=== PATIENT | female | born 1965 | race Caucasian/White ===

== ENCOUNTER 2016-10-02 16:38 | Inpatient (IN) ==
--- NOTE | 2016-10-02 16:45 | Emergency Department Note ---
START Narrative - START START: I examined this patient and my medical decision-making was reviewed with the ANTIQUE AUTOMOBILES REPAIRER/PA/Advanced Practice Nurse/Resident Physician. I agree with the documented findings, disposition and treatment plan as described except to the extent set forth below. ED attending note: Patient seen with emergency medicine resident Dr Natarajan. We independently evaluated the patient. We independently had [id number] contact with the patient. Please see a copy of his note for details of the history and physical, evaluation, management and disposition of this emergency Department patient. Briefly: A 51-year-old female sent by EMS from Dr. Pineda psychiatric attending. Patient arrives pink slipped miss knee requesting medical clearance prior to admission to the psychiatric unit. Patient is has schizoaffective disorder with suicidal ideations. Wakeboard cooperative. Patient was medically cleared and then she will be admitted inpatient. Disposition pending admission anticipated.
[2016-10-02 16:55] LABS: Bilirubin,Urine Negative (Negative); Blood,Urine Negative (Negative); Clarity,Urine Clear (Clear); Color,Urine Yellow (Yellow); Glucose,Urine (UA) Normal (Normal); Ketones,Urine Negative (Negative); Leukocyte Esterase,Urine Negative (Negative); Nitrite,Urine Negative (Negative); PH,Urine 6.5 pH Units (5.0-8.0); Protein,Urine Negative (Neg-Trace); Specific Gravity,Urine 1.014 (1.010-1.025); Urobilinogen,Urine Normal (Normal)
[2016-10-02 17:02] LABS: Amphetamine Screen,Urine Negative ng/mL (Cutoff=1000); Barbiturate Screen,Urine Negative ng/mL (Cutoff=200); Benzodiazepines Screen,Urine Positive ng/mL (Cutoff=200); Cannabinoid Screen,Urine Negative ng/mL (Cutoff = 50); Cocaine Screen,Urine Negative ng/mL (Cutoff= 300); Opiate Screen,Urine Negative ng/mL (Cutoff=300); Phencyclidine Screen,Urine Negative ng/mL (Cutoff=25)
[2016-10-02 17:06] LABS: Basophils % 0.6 %; Eosinophils # 0.1 K/mcL (0.0-0.6); Eosinophils % 2.1 %; Hematocrit 43.6 % (35.3-44.9); Hemoglobin 14.8 g/dL (11.5-15.4); Immature Granulocytes % 0.2 % (0-4); Lymphocytes # 2.4 K/mcL (0.6-4.6); Lymphocytes % 37.8 %; Mean Corpuscular HGB Conc 33.9 g/dL (31.6-35.5); Mean Corpuscular Volume 94.2 fL (83.0-100.0); Mean Platelet Volume 9.4 fL (9.4-12.4); Monocytes # 0.5 K/mcL (0.0-1.3); Monocytes % 8.3 %; Neutrophils # 3.2 K/mcL (1.6-8.9); Platelet Count 240 K/mcL (140-400); Red Blood Count 4.63 M/mcL (3.82-4.97); Red Cell Distribution Width 13.2 % (11.5-14.5)
[2016-10-02 17:20] LABS: BUN/Creatinine Ratio 11 (6-26); Blood Urea Nitrogen 9 mg/dL (7-20); Calcium 9.5 mg/dL (8.6-10.8); Carbon Dioxide 22 mEq/L (19-29); Chloride 108 mEq/L (98-109); Glucose 142 mg/dL (70-99); Osmolality,Calculated 291 (280-300); Potassium 3.7 mEq/L (3.5-4.5); Sodium 140 mEq/L (136-145); eGFR For African Americans > 60 (> 60); eGFR For Non-African Americans > 60 (> 60)
[2016-10-02 17:22] LABS: Acetaminophen < 1.0 mcg/mL (10-30); Ethanol < 10 mg/dL (0-10); Salicylate < 5.0 mg/dL (15-30)
--- NOTE | 2016-10-02 18:02 | Emergency Department Note ---
Disposition Clinical Impression: Psychiatric illness Disposition: Admitted As Inpatient Condition: Good Referrals: NO,PCP [Primary Care Provider] - Forms: ED Satisfaction Letter Psych HPI - General Chief Complaint: ED Medical Clearance Stated Complaint: med clearance Time Seen by Provider: 10/02/16 16:43 Source: patient, EMS Nursing Notes Reviewed: Yes Vital Signs Reviewed: Yes - History of Present Illness HPI Narrative: 51-year-old female with a history of schizoaffective disorder and PTSD as well as irritable bowel syndrome and a mitral valve prolapse presents to the emergency department by request of her psychiatrist for admission to the hospital. She states she has had thoughts in her head that are so confusing and does not know if these are suicidal ideations or not. SHe denies any suicide attempt or ingestion. She denies any chest pain, shortness of breath, abdominal pain, nausea or vomiting. She states she has not been sick recently. She was previously seen a psychiatrist who and that has been very hard on her as well. - Related Data Home Medications Medication Instructions Recorded Confirmed Atorvastatin [Lipitor] 10 mg PO HS 01/04/16 01/04/16 Diltiazem CD (24hr) [Cardizem CD] 180 mg PO DAILY 01/04/16 01/04/16 LORazepam [Ativan] 0.5 mg PO BID 01/04/16 01/04/16 Lactobacillus Combo No.11 2 each PO TID 01/04/16 01/04/16 [Probiotic] Levothyroxine [Synthroid] 50 mcg PO 0630 01/04/16 01/04/16 Magnesium 250 mg PO DAILY 01/04/16 01/04/16 Multivitamin [Multivitamins] 1 each PO QID 01/04/16 01/04/16 Pantoprazole Sodium 40 mg PO DAILY 01/04/16 01/04/16 Quetiapine Fumarate [SEROquel] 300 mg PO HS 01/04/16 01/04/16 Vortioxetine Hydrobromide 10 mg PO DAILY 01/04/16 01/04/16 [Trintellix] Wheat Dextrin [Benefiber] 1 each PO DAILY 01/04/16 01/04/16 lamoTRIgine [Lamictal] 200 mg PO HS 01/04/16 01/04/16 Previous Rx's Medication Instructions Recorded Cyclobenzaprine [Flexeril] 10 mg PO TID PRN #15 tablet 01/04/16 Naproxen [Naprosyn] 500 mg PO BID PRN #30 tablet 01/04/16 predniSONE [PredniSONE] 60 mg PO DAILY #15 tablet 01/04/16 Allergies Allergy/AdvReac Type Severity Reaction Status Date / Time [place] Allergy See Verified 10/02/16 16:45 Comments All systems ED: reviewed and negative except as stated. Constitutional: Denies: fever Cardiovascular: Denies: chest pain Respiratory: Denies: cough, dyspnea Gastrointestinal: Denies: abdominal pain, nausea, vomiting Neurological: Denies: headache Psychiatric: Reports: depression. Denies: homicidal thoughts Past Medical History - Past Medical History Medical history: Reports: GERD, hyperlipidemia, thyroid disease Psychiatric history: Reports: anxiety, depression, PTSD, schizophrenia, other WINDOWS SUPPORT ENGINEER history: Reports: no WINDOWS SUPPORT ENGINEER history - Social History Smoking Status: Never smoker Smokeless Tobacco Status: No Alcohol use: Reports: rarely Drug use: Reports: none Physical Exam General: Appears well, alert and oriented x 3 Cardiovascular: Regular rate and rhythm. S1, S2. Mild end systolic murmur, no rubs or gallops. Respiratory: Breath sounds clear bilaterally. No wheezing, rales or rhonchi. No resp distress Abdomen: Soft, nontender. No guarding, rebound or rigidity. Eyes: Conjunctiva clear HENT: Moist mucous membranes Neuro: Alert and oriented 3, no motor sensory deficits Musculoskeletal: No joint tenderness or swelling or no signs of self-harm Skin: No lesions. No diaphoresis. Normal turgor. Normal color Psych: Appropriate - General Limitations: no limitations General appearance: alert, in no apparent distress Course Course Narrative: Presents with presents to the ED by request of her psychiatrist, Dr. Turner for admission. Patient having thoughts in her head and unsure if these are suicidal or not. She was examined and evaluated and is medically clear. Patient will be admitted to the hospital for further psychiatric management. Vital Signs Temperature 98.0 F 10/02/16 16:39 Pulse Rate 80 10/02/16 16:39 Respiratory Rate 16 10/02/16 16:39 Blood Pressure 126/81 10/02/16 16:39 O2 Sat by Pulse Oximetry 97 10/02/16 16:39 Temperature 98.0 F 10/02/16 16:39 Pulse Rate 80 10/02/16 16:39 Respiratory Rate 16 10/02/16 16:39 Blood Pressure 126/81 10/02/16 16:39 O2 Sat by Pulse Oximetry 97 10/02/16 16:39 Oxygen Delivery Oxygen Delivery Room Air Psych - Lab Data Result diagrams: 10/02/16 16:57 10/02/16 16:57 Lab Results 10/02/16 10/02/16 10/02/16 Range/Units 16:15 16:15 16:15 WBC (4.3-11.1) K/mcL RBC (3.82-4.97) M/mcL Hgb (11.5-15.4) g/dL Hct (35.3-44.9) % MCV (83.0-100.0) fL MCH (28.0-33.3) pg MCHC (31.6-35.5) g/dL RDW (11.5-14.5) % Plt Count (140-400) K/mcL MPV (9.4-12.4) fL Immature Gran % (0-4) % Seg Neutrophils % % Lymphocytes % % Monocytes % % Eosinophils % % Basophils % % Neutrophils # (1.6-8.9) K/mcL Lymphocytes # (0.6-4.6) K/mcL Monocytes # (0.0-1.3) K/mcL Eosinophils # (0.0-0.6) K/mcL Basophils # (0.0-0.2) K/mcL Sodium (136-145) mEq/L Potassium (3.5-4.5) mEq/L Chloride (98-109) mEq/L Carbon Dioxide (19-29) mEq/L BUN (7-20) mg/dL Creatinine (0.57-1.11) mg/dL Est GFR ( Amer) (> 60) Est GFR (Non-Af Amer) (> 60) BUN/Creatinine Ratio (6-26) Glucose (70-99) mg/dL Calculated Osmolality (280-300) Calcium (8.6-10.8) mg/dL Urine Color Yellow (Yellow) Urine Clarity Clear (Clear) Urine pH 6.5 (5.0-8.0) pH Units Ur Specific [place] 1.014 (1.010-1.025) Urine Protein Negative (Neg-Trace) mg/dL Urine Glucose (UA) Normal (Normal) mg/dL Urine Ketones Negative (Negative) mg/dL Urine Blood Negative (Negative) Urine Nitrite Negative (Negative) Urine Bilirubin Negative (Negative) Urine Urobilinogen Normal (Normal) mg/dL Ur Leukocyte Esterase Negative (Negative) Urine Test Negative (Negative) Salicylates (15-30) mg/dL Urine Opiates Screen Negative (Rofbpb=366) ng/mL Acetaminophen (10-30) mcg/mL Ur Barbiturates Screen Negative (Buhgcw=123) ng/mL Ur Phencyclidine Scrn Negative (Cutoff=25) ng/mL Ur Amphetamines Screen Negative (Iibeap=2335) ng/mL U Benzodiazepines Scrn Positive H (Sfbphm=784) ng/mL Urine Cocaine Screen Negative (Cutoff= 300) ng/mL U Marijuana (THC) Screen Negative (Cutoff = 50) ng/mL Ethyl Alcohol (0-10) mg/dL 10/02/16 10/02/16 Range/Units 16:57 16:57 WBC 6.3 (4.3-11.1) K/mcL RBC 4.63 (3.82-4.97) M/mcL Hgb 14.8 (11.5-15.4) g/dL Hct 43.6 (35.3-44.9) % MCV 94.2 (83.0-100.0) fL MCH 32.0 (28.0-33.3) pg MCHC 33.9 (31.6-35.5) g/dL RDW 13.2 (11.5-14.5) % Plt Count 240 (140-400) K/mcL MPV 9.4 (9.4-12.4) fL Immature Gran % 0.2 (0-4) % Seg Neutrophils % 51.0 % Lymphocytes % 37.8 % Monocytes % 8.3 % Eosinophils % 2.1 % Basophils % 0.6 % Neutrophils # 3.2 (1.6-8.9) K/mcL Lymphocytes # 2.4 (0.6-4.6) K/mcL Monocytes # 0.5 (0.0-1.3) K/mcL Eosinophils # 0.1 (0.0-0.6) K/mcL Basophils # 0.0 (0.0-0.2) K/mcL Sodium 140 (136-145) mEq/L Potassium 3.7 (3.5-4.5) mEq/L Chloride 108 (98-109) mEq/L Carbon Dioxide 22 (19-29) mEq/L BUN 9 (7-20) mg/dL Creatinine 0.84 (0.57-1.11) mg/dL Est GFR ( Amer) > 60 (> 60) Est GFR (Non-Af Amer) > 60 (> 60) BUN/Creatinine Ratio 11 (6-26) Glucose 142 H (70-99) mg/dL Calculated Osmolality 291 (280-300) Calcium 9.5 (8.6-10.8) mg/dL Urine Color (Yellow) Urine Clarity (Clear) Urine pH (5.0-8.0) pH Units Ur Specific [place] (1.010-1.025) Urine Protein (Neg-Trace) mg/dL Urine Glucose (UA) (Normal) mg/dL Urine Ketones (Negative) mg/dL Urine Blood (Negative) Urine Nitrite (Negative) Urine Bilirubin (Negative) Urine Urobilinogen (Normal) mg/dL Ur Leukocyte Esterase (Negative) Urine Test (Negative) Salicylates < 5.0 L (15-30) mg/dL Urine Opiates Screen (Laorhm=022) ng/mL Acetaminophen < 1.0 L (10-30) mcg/mL Ur Barbiturates Screen (Sayagn=950) ng/mL Ur Phencyclidine Scrn (Cutoff=25) ng/mL Ur Amphetamines Screen (Xiscmv=1281) ng/mL U Benzodiazepines Scrn (Diegqm=960) ng/mL Urine Cocaine Screen (Cutoff= 300) ng/mL U Marijuana (THC) Screen (Cutoff = 50) ng/mL Ethyl Alcohol < 10 (0-10) mg/dL Psychiatric Medical Clearance - Medical Clearance Checklist Does the patient have a NEW psychiatric condition?: No Any abnormalities indicating possible medical illness?: No Any history of medical issues?: No Medical History: No Social History Section defined Any abnormal vital signs prior to transfer?: No Current Vitals: Last Vital Signs Temp 98.0 F 10/02/16 16:39 Pulse 80 10/02/16 16:39 Resp 16 10/02/16 16:39 BP 126/81 10/02/16 16:39 Pulse Ox 97 10/02/16 16:39 Is the patient intoxicated or cognitively impaired?: No Psychiatric Lab Panel: Drug Levels and Toxicity 10/02/16 10/02/16 16:15 16:57 Urine Opiates Screen Negative Acetaminophen < 1.0 L Ur Barbiturates Screen Negative Ur Phencyclidine Scrn Negative Ur Amphetamines Screen Negative U Benzodiazepines Scrn Positive H Urine Cocaine Screen Negative U Marijuana (THC) Screen Negative Ethyl Alcohol < 10 Any abnormalities on the physical exam?: No Any abnormal labs?: No Abnormal Labs: Abnormal lab results Glucose 142 mg/dL (70-99) H 10/02/16 16:57 Salicylates < 5.0 mg/dL (15-30) L 10/02/16 16:57 Acetaminophen < 1.0 mcg/mL (10-30) L 10/02/16 16:57 U Benzodiazepines Scrn Positive ng/mL (Bqwoww=539) H 10/02/16 16:15 Does the patient require durable medical equiptment?: No Is the patient ambulatory?: No Is the patient a fall risk?: No Has the patient been medically cleared?: No Any acute medical condition require Tx prior to transfer?: No Statement of Medical Clearance: I have evaluated the patient, reviewed diagnostic information, and certify that the patient's medical condition is sufficiently stable that transfer to the psychiatric unit does not pose a significant risk of deterioration.
[2016-10-02] MEDS ORDERED: *HR* LORazepam 1 MG TABLET PO ONE (19:42)
[2016-10-02] MEDS ORDERED: *HR* LORazepam 2 MG/ML VIAL IM PRN (21:18)
[2016-10-02] MEDS ORDERED: MOM Conc 10 ML UD.LIQ PO PRN (21:18)
[2016-10-02] MEDS ORDERED: hydrOXYzine pamoate 25 MG CAPSULE PO PRN (21:18)
[2016-10-02] MEDS ORDERED: *HR* LORazepam 1 MG TABLET PO PRN (21:18)
[2016-10-02] MEDS ORDERED: Haloperidol Lactate 5 MG/ML VIAL IM PRN (21:18)
[2016-10-02] MEDS ORDERED: Mag Hydrox/Al Hydrox/Simeth 30 ML UDC PO PRN (21:18)
[2016-10-02] MEDS ORDERED: Polyethylene Glycol 3350 255 GM POWDER PO PRN (21:25)
[2016-10-02] MEDS: diazePAM 2 MG TABLET PO SCH (22:28)
[2016-10-02] MEDS: Ibuprofen 400 MG TABLET PO PRN (22:28)
[2016-10-02] MEDS: lamoTRIgine 100 MG TABLET PO SCH (22:28)
[2016-10-03] MEDS: lamoTRIgine 100 MG TABLET PO SCH ×2 (09:13→20:38)
[2016-10-03] MEDS: Magnesium Oxide 400 MG TABLET PO SCH (09:13)
[2016-10-03] MEDS: Lactobacillus 1 EACH CAP.SPRINK PO SCH (09:13)
[2016-10-03] MEDS: Diltiazem CD (24hr) 180 MG CAPSULE PO SCH (09:14)
[2016-10-03] MEDS: diazePAM 2 MG TABLET PO SCH ×2 (09:14→20:38)
[2016-10-03] MEDS: Multivit/Ca/Min/Fe/FA 1 TAB TABLET PO SCH (09:14)
--- NOTE | 2016-10-03 10:45 | Psychiatry History & Physical ---
Date of Encounter: 10/03/16 Time of Encounter: 10:00 History of Present Illness Patient Stated Chief Complaint: Suicidal ideation Medicare Admission Attestation: For traditional Medicare patients the provided hospital inpatient services are reasonable and necessary and in the case of services not specified as inpatient -only under 42 CFR 419.22 (n), that they are appropriately provided as inpatient services in accordance 42 CFR 412.3. For Critical Access Hospital the patient may reasonably be expected to be discharged or transferred to a hospital within 96 hours after admission to the Critical Access Hospital. Admitted From: Emergency Dept History of Present Illness: Ms. Estrada is a 51 year old female with long history of schizoaffective disorder bipolar type, she was referred for admission by Dr. Pineda her psychiatrist to evaluate suicidal ideation and medication changes. Patient was medically cleared in the emergency room. Patient has been reported to be going several increasing mood swings and auditory hallucinations and poor sleep. Recently she was tapered off Effexor and having some withdrawal symptoms. Patient has long history of psychiatric treatment for schizoaffective disorder PTSD and personality disorder. She has been followed by Dr. Pineda at [facility]. Past Med Surg Social Fam HX - Past Medical History Medical history: GERD, hyperlipidemia, thyroid disease - Past Psychiatric History Psychiatric history: Reports: bipolar, PTSD, prior suicide attempt, previous psychiatric hospitalization - Past Surgical History Surgical History: hysterectomy - Social History Smoking Status: Never smoker Smokeless Tobacco Status: No Alcohol use: rarely Drug use: none Medications & Allergies Atorvastatin [Lipitor] 10 mg PO HS 01/04/16 [History] Diltiazem CD (24hr) [Cardizem CD] 180 mg PO DAILY 01/04/16 [History] Lactobacillus Combo No.11 [Probiotic] 2 each PO DAILY 01/04/16 [History] Levothyroxine [Synthroid] 50 mcg PO 0630 01/04/16 [History] Magnesium 250 mg PO DAILY 01/04/16 [History] Multivitamin [Multivitamins] 1 each PO DAILY 01/04/16 [History] Pantoprazole Sodium 40 mg PO DAILY 01/04/16 [History] Quetiapine Fumarate [SEROquel] 300 mg PO HS 01/04/16 [History] lamoTRIgine [Lamictal] 200 mg PO BID 01/04/16 [History] Polyethylene Glycol 3350 [MiraLAX bowel prep] 17 gm PO DAILY PRN 05/15/17 [ History] diazePAM [Valium] 2 mg PO BID 10/02/16 [History] Allergies [place] Allergy (Verified 10/02/16 19:04) See Comments Patient states that this medication caused her thyroid levels to be "off" Review of Systems Psychiatric: Reports: anxiety, suicidal ideation, auditory hallucinations, mood swings Mental Status Exam Patient orientation: Yes Person, Yes Time, Yes Place Level of alertness: Alert Patient appearance: Appropriate, Well Groomed, Unkempt, Average Behavior: calm, cooperative, guarded Psychomotor activity: Normal Eye contact: Minimal Contact Mood description: Euthymic/stable, Anxious Affect description: congruent with mood, constricted, anxious Speech pattern: Normal rate, Normal rhythm, Normal tone Speech volume: Normal Thought process: Linear, Goal Oriented Thought content: No Suicidal ideation, No Homicidal ideation, No Overt delusions Perceptual disturbances: Yes Auditory hallucinations, No Visual hallucinations Attention span: Unable to Focus Memory description: Grossly Intact Patient reliability: Reliable Historian Intelligence estimate: Average Judgment: Limited Insight: Partial Results - Vital Signs Vital signs: Temp Pulse Resp BP Pulse Ox 97.8 F 94 18 115/84 97 10/03/16 09:00 10/03/16 09:00 10/03/16 09:00 10/03/16 09:00 10/02/16 16:39 - Labs Labs: Laboratory Last Values WBC 6.3 K/mcL (4.3-11.1) 10/02/16 16:57 RBC 4.63 M/mcL (3.82-4.97) 10/02/16 16:57 Hgb 14.8 g/dL (11.5-15.4) 10/02/16 16:57 Hct 43.6 % (35.3-44.9) 10/02/16 16:57 MCV 94.2 fL (83.0-100.0) 10/02/16 16:57 MCH 32.0 pg (28.0-33.3) 10/02/16 16:57 MCHC 33.9 g/dL (31.6-35.5) 10/02/16 16:57 RDW 13.2 % (11.5-14.5) 10/02/16 16:57 Plt Count 240 K/mcL (140-400) 10/02/16 16:57 MPV 9.4 fL (9.4-12.4) 10/02/16 16:57 Immature Gran % 0.2 % (0-4) 10/02/16 16:57 Seg Neutrophils % 51.0 % 10/02/16 16:57 Lymphocytes % 37.8 % 10/02/16 16:57 Monocytes % 8.3 % 10/02/16 16:57 Eosinophils % 2.1 % 10/02/16 16:57 Basophils % 0.6 % 10/02/16 16:57 Neutrophils # 3.2 K/mcL (1.6-8.9) 10/02/16 16:57 Lymphocytes # 2.4 K/mcL (0.6-4.6) 10/02/16 16:57 Monocytes # 0.5 K/mcL (0.0-1.3) 10/02/16 16:57 Eosinophils # 0.1 K/mcL (0.0-0.6) 10/02/16 16:57 Basophils # 0.0 K/mcL (0.0-0.2) 10/02/16 16:57 Sodium 140 mEq/L (136-145) 10/02/16 16:57 Potassium 3.7 mEq/L (3.5-4.5) 10/02/16 16:57 Chloride 108 mEq/L (98-109) 10/02/16 16:57 Carbon Dioxide 22 mEq/L (19-29) 10/02/16 16:57 BUN 9 mg/dL (7-20) 10/02/16 16:57 Creatinine 0.84 mg/dL (0.57-1.11) 10/02/16 16:57 Est GFR ( Amer) > 60 (> 60) 10/02/16 16:57 Est GFR (Non-Af Amer) > 60 (> 60) 10/02/16 16:57 BUN/Creatinine Ratio 11 (6-26) 10/02/16 16:57 Glucose 142 mg/dL (70-99) H 10/02/16 16:57 Calculated Osmolality 291 (280-300) 10/02/16 16:57 Calcium 9.5 mg/dL (8.6-10.8) 10/02/16 16:57 Urine Color Yellow (Yellow) 10/02/16 16:15 Urine Clarity Clear (Clear) 10/02/16 16:15 Urine pH 6.5 pH Units (5.0-8.0) 10/02/16 16:15 Ur Specific [place] 1.014 (1.010-1.025) 10/02/16 16:15 Urine Protein Negative mg/dL (Neg-Trace) 10/02/16 16:15 Urine Glucose (UA) Normal mg/dL (Normal) 10/02/16 16:15 Urine Ketones Negative mg/dL (Negative) 10/02/16 16:15 Urine Blood Negative (Negative) 10/02/16 16:15 Urine Nitrite Negative (Negative) 10/02/16 16:15 Urine Bilirubin Negative (Negative) 10/02/16 16:15 Urine Urobilinogen Normal mg/dL (Normal) 10/02/16 16:15 Ur Leukocyte Esterase Negative (Negative) 10/02/16 16:15 Urine Test Negative (Negative) 10/02/16 16:15 Salicylates < 5.0 mg/dL (15-30) L 10/02/16 16:57 Urine Opiates Screen Negative ng/mL (Gykhwl=225) 10/02/16 16:15 Acetaminophen < 1.0 mcg/mL (10-30) L 10/02/16 16:57 Ur Barbiturates Screen Negative ng/mL (Gerrkm=892) 10/02/16 16:15 Ur Phencyclidine Scrn Negative ng/mL (Cutoff=25) 10/02/16 16:15 Ur Amphetamines Screen Negative ng/mL (Njjalp=5703) 10/02/16 16:15 U Benzodiazepines Scrn Positive ng/mL (Dhcpkr=152) H 10/02/16 16:15 Urine Cocaine Screen Negative ng/mL (Cutoff= 300) 10/02/16 16:15 U Marijuana (THC) Screen Negative ng/mL (Cutoff = 50) 10/02/16 16:15 Ethyl Alcohol < 10 mg/dL (0-10) 10/02/16 16:57 Assessment and Plan (1) Schizoaffective disorder, bipolar type Current visit: Yes Status: Acute Plan: Admit inpatient for safety and stabilization, Close observation, Suicide Precautions per unit protocol, Encourage participation in unit milieu, Group Therapy, Monitor sleep, Monitor appetite Additional Plan: Will increase Seroquel to 400 mg at bedtime. Will order Geodon 20 mg twice a day when necessary for hallucinations. And will monitor Risks, benefits, side effects, alternatives discussed w/pt: Yes Patient agreeable to treatment: Yes
[2016-10-03] MEDS: Ziprasidone 20 MG CAPSULE PO PRN ×2 (10:58→17:01)
[2016-10-04] MEDS: Diltiazem CD (24hr) 180 MG CAPSULE PO SCH (09:30)
[2016-10-04] MEDS: lamoTRIgine 100 MG TABLET PO SCH ×2 (09:30→21:35)
[2016-10-04] MEDS: Multivit/Ca/Min/Fe/FA 1 TAB TABLET PO SCH (09:31)
[2016-10-04] MEDS: Lactobacillus 1 EACH CAP.SPRINK PO SCH (09:31)
[2016-10-04] MEDS: Magnesium Oxide 400 MG TABLET PO SCH (09:31)
[2016-10-04] MEDS: diazePAM 2 MG TABLET PO SCH ×2 (09:31→21:35)
--- NOTE | 2016-10-04 12:07 | Psychiatry Progress Note ---
Date of Encounter: 10/04/16 Time of Encounter: 11:40 Subjective Interval history: Patient is seen for follow-up. She reports improved sleep and feels slightly sedated. She had an episode of confusion and what she described as voices and arguments in her head that responded well to Geodon. She denies any suicidal thoughts and I discussed with her starting Wellbutrin to improve her level of energy and activity especially after she was taken off Effexor. She was advised to keep track of episodes of confusion or voices to evaluate the treatment response. Review of Systems Psychiatric: Reports: anxiety, suicidal ideation, auditory hallucinations, mood swings Objective: Exam Patient orientation: Yes Person, Yes Time, Yes Place Level of alertness: Alert Patient appearance: Appropriate, Well Groomed Behavior: calm, cooperative Psychomotor activity: Normal Eye contact: Maintains Eye Contact Mood description: Euthymic/stable, Anxious Affect description: congruent with mood, labile Speech pattern: Normal rate, Normal rhythm, Normal tone, Slowed Speech volume: Normal Thought process: Linear, Goal Oriented Thought content: Yes Suicidal ideation, No Homicidal ideation, No Overt delusions Perceptual disturbances: No Auditory hallucinations, No Visual hallucinations Judgment: Fair Insight: Partial Results - Vital Signs Vital Signs: Temp Pulse Resp BP Pulse Ox 98.2 F 94 16 114/79 97 10/04/16 08:50 10/04/16 08:50 10/04/16 08:50 10/04/16 08:50 10/02/16 16:39 Assessment and Plan (1) Schizoaffective disorder, bipolar type Current visit: Yes Status: Acute Plan: Continue hospitalization, Close observation, Suicide Precautions per unit protocol, Encourage participation in unit milieu, Group Therapy, Monitor sleep, Monitor appetite Additional Plan: Will add Wellbutrin SR 150 mg daily benefits and side effects were discussed patient also starts and will monitor Risks, benefits, side effects, alternatives discussed w/pt: Yes Patient agreeable to treatment: Yes Consult Discharge Plan - Plan Referrals: [facility] [Outside] - 10/23/16 9:20 am (The above appointment is with Dr. Knight.) Lenin Oakley, PhD [Outside] (Dr. Oakley will contact you directly to schedule your first appointment.)
[2016-10-04] MEDS: BuPROPion SR (12 HR) 150 MG TABLET PO SCH (12:48)
[2016-10-05] MEDS: Lactobacillus 1 EACH CAP.SPRINK PO SCH (09:33)
[2016-10-05] MEDS: BuPROPion SR (12 HR) 150 MG TABLET PO SCH (09:33)
[2016-10-05] MEDS: Diltiazem CD (24hr) 180 MG CAPSULE PO SCH (09:34)
[2016-10-05] MEDS: diazePAM 2 MG TABLET PO SCH ×2 (09:34→21:11)
[2016-10-05] MEDS: Magnesium Oxide 400 MG TABLET PO SCH (09:34)
[2016-10-05] MEDS: Multivit/Ca/Min/Fe/FA 1 TAB TABLET PO SCH (09:34)
[2016-10-05] MEDS: lamoTRIgine 100 MG TABLET PO SCH ×2 (09:34→21:11)
[2016-10-05] MEDS: Ibuprofen 400 MG TABLET PO PRN ×2 (13:40→21:10)
--- NOTE | 2016-10-05 14:30 | Psychiatry Progress Note ---
Date of Encounter: 10/05/16 Time of Encounter: 14:10 Subjective Interval history: Patient is seen for follow-up. She reports feeling better mood is not depressed and not anxious. Occasionally she had mid-insomnia. She denied any hopelessness or suicidal ideation. She is future oriented and planning to do more volunteering. She is comfortable with his current medication and doses. Denied any confused episodes. Review of Systems Psychiatric: Reports: anxiety, suicidal ideation, auditory hallucinations, mood swings Objective: Exam Patient orientation: Yes Person, Yes Time, Yes Place Level of alertness: Alert Patient appearance: Appropriate, Well Groomed Behavior: calm, cooperative Psychomotor activity: Normal Eye contact: Maintains Eye Contact Mood description: Euthymic/stable Affect description: congruent with mood, full range Speech pattern: Normal rate, Normal rhythm, Normal tone Speech volume: Normal Thought process: Linear, Goal Oriented Thought content: No Suicidal ideation, No Homicidal ideation, No Overt delusions Perceptual disturbances: No Auditory hallucinations, No Visual hallucinations Judgment: Fair Insight: Partial Results - Vital Signs Vital Signs: Temp Pulse Resp BP Pulse Ox 98.5 F 93 16 138/74 97 10/05/16 08:56 10/05/16 08:56 10/05/16 08:56 10/05/16 08:56 10/02/16 16:39 Assessment and Plan (1) Schizoaffective disorder, bipolar type Current visit: Yes Status: Acute Plan: Continue hospitalization, Close observation, Suicide Precautions per unit protocol, Encourage participation in unit milieu, Group Therapy, Monitor sleep, Monitor appetite Risks, benefits, side effects, alternatives discussed w/pt: Yes Patient agreeable to treatment: Yes Consult Discharge Plan - Plan Referrals: [facility] [Outside] - 10/23/16 9:20 am (The above appointment is with Dr. Knight.) Lenin Oakley, PhD [Outside] (Dr. Oakley will contact you directly to schedule your first appointment.)
[2016-10-05] MEDS ORDERED: Acetaminophen 325 MG TABLET PO ONE (15:46)
[2016-10-06] MEDS: Ibuprofen 400 MG TABLET PO PRN (05:20)
[2016-10-06 08:44] VITALS: BP 113/80
[2016-10-06] MEDS: lamoTRIgine 100 MG TABLET PO SCH (09:20)
[2016-10-06] MEDS: Magnesium Oxide 400 MG TABLET PO SCH (09:20)
[2016-10-06] MEDS: diazePAM 2 MG TABLET PO SCH (09:20)
[2016-10-06] MEDS: Diltiazem CD (24hr) 180 MG CAPSULE PO SCH (09:20)
[2016-10-06] MEDS: Multivit/Ca/Min/Fe/FA 1 TAB TABLET PO SCH (09:20)
[2016-10-06] MEDS: BuPROPion SR (12 HR) 150 MG TABLET PO SCH (09:20)
[2016-10-06] MEDS: Lactobacillus 1 EACH CAP.SPRINK PO SCH (09:20)
--- NOTE | 2016-10-06 11:33 | Discharge Summary ---
Date of Encounter: 10/06/16 Time of Encounter: 11:00 Diagnosis - Discharge Diagnosis (1) Schizoaffective disorder, bipolar type Status: Acute Medications - Discharge Medications Prescriptions: BuPROPion SR (12 HR) [Wellbutrin SR] 150 mg PO DAILY #30 tablet.er Ziprasidone [Geodon] 20 mg PO BID PRN #30 capsule PRN Reason: Agitation Atorvastatin [Lipitor] 10 mg PO HS 01/04/16 [History] Diltiazem CD (24hr) [Cardizem CD] 180 mg PO DAILY 01/04/16 [History] Lactobacillus Combo No.11 [Probiotic] 2 each PO DAILY 01/04/16 [History] Levothyroxine [Synthroid] 50 mcg PO 0630 01/04/16 [History] Magnesium 250 mg PO DAILY 01/04/16 [History] Multivitamin [Multivitamins] 1 each PO DAILY 01/04/16 [History] Pantoprazole Sodium 40 mg PO DAILY 01/04/16 [History] lamoTRIgine [Lamictal] 200 mg PO BID 01/04/16 [History] Polyethylene Glycol 3350 [MiraLAX bowel prep] 17 gm PO DAILY PRN 10/02/16 [ History] BuPROPion SR (12 HR) [Wellbutrin SR] 150 mg PO DAILY #30 tablet.er 10/06/16 [Rx] Quetiapine Fumarate [Seroquel] 400 mg PO HS #0 10/06/16 [Rx] Ziprasidone [Geodon] 20 mg PO BID PRN #30 capsule 10/06/16 [Rx] diazePAM [Valium] 2 mg PO BID PRN #0 10/06/16 [Rx] Allergies [place] Allergy (Verified 10/02/16 19:04) See Comments Patient states that this medication caused her thyroid levels to be "off" Provider Date of admission: 10/02/16 18:54 Primary care physician: PCP NO Discharging clinician: Devonte Eduardo Assessment and Plan - Patient/Caregiver Discharge Instructions Activity: resume usual activities as tolerated Diet: regular diet - Follow up Plan Follow up with: [facility] [Outside] - 10/23/16 9:20 am (The above appointment is with Dr. Knight.) Lenin Oakley, PhD [Outside] (Dr. Oakley will contact you directly to schedule your first appointment.) Functional capacity at discharge: independent ambulation Overall status at discharge: Stable Disposition: Home, Self-Care Hospital Course Hospital course: Ms. Estrada is a 51 year old female admitted for depression and suicidal ideation and medication issues. Fortitude of admission please see H&P On the unit patient medication were reviewed. Seroquel was increased to 400 mg at bedtime and we added Wellbutrin SR 150 mg daily and Geodon 20 mg twice a day when necessary. Patient responded well to medication she reports improved sleep , her mood and energy level improved she denied suicidal ideation and denied any auditory hallucinations. She experienced some side effects in the form of headache and dizziness , later resolved. Patient participated in group activities and was compliant with treatment plan and medication. On discharge patient was medically stable, nonsuicidal, mood has been stable and she was future oriented and looking forward to upcoming vacation. - Time Spent with Patient Total time spent providing and/or coordinating discharge services: Greater than 30 minutes Quality - Multiple Antipsychotics Patient discharged on 2 or more antipsychotic medications: Yes (Patient will be taking Geodon 20 mg as needed for agitation and confusion) - Justification Documentation of: Other justification (See above) Procedures - Procedures Procedures: Medication Management, Crisis Stabilization, Supportive Therapy, Group Therapy, Psychoeducational Therapy Mental Status Exam - Mental Status Exam Patient orientation: Yes Person, Yes Time, Yes Place Level of alertness: Alert Patient appearance: Appropriate, Well Groomed Behavior: calm, cooperative Psychomotor activity: Normal Eye contact: Maintains Eye Contact Mood description: Euthymic/stable Affect description: congruent with mood, full range Speech pattern: Normal rate, Normal rhythm, Normal tone Speech Volume: Normal Thought process: Linear, Goal Oriented Thought Content: No Suicidal ideation, No Homicidal ideation, No Overt delusions Perceptual Disturbances: No Auditory hallucinations, No Visual hallucinations Judgment: Limited Insight: Partial
== END 2016-10-06 14:00 | disposition home or self-care (01) | DRG 885 ==
LOC: EMEROO 16:38 → 1ANU 18:54
PROVIDERS: ADMIT Psychiatry & Neurology Psychiatry; ATTEND Psychiatry & Neurology Psychiatry

== ENCOUNTER 2018-03-06 16:00 | Inpatient (IN) ==
--- NOTE | 2018-03-06 16:07 | Emergency Department Note ---
Disposition Clinical Impression: Hallucination Depression Qualifiers: Depression Type: unspecified Qualified Code(s): F32.9 - Major depressive disorder, single episode, unspecified Disposition: Admitted As Inpatient Condition: Fair Time of Disposition: 20:03 Psych HPI - General Stated Complaint: SI Time Seen by Provider: 03/06/18 16:04 Nursing Notes Reviewed: Yes Vital Signs Reviewed: Yes - History of Present Illness HPI Narrative: 52yo female presents from home for evaluation of suicidal ideation. Her psychologist, Dr. Oakley, recommended she present to the ED. Patient has not missed any medications; they are controlled by her who is bedside. She has, however, been drinking 2-3 beers with her medications. She notes that, over the past several days, she has lost interest in everything. She supplied does not want to be here anymore. She is concerned that she does not seek treatment she will attempt suicide. Additionally, she has auditory hallucinations described as mumbling voices such as somebody in the room next to her. Her has been present when she has these auditory hallucinations and he hears nothing. He has no hearing problems. No visual hallucinations. PMH: schizoaffective bipolar disorder, PTSD, personality disorder. Followed by psychiatrist Dr. Pineda at [facility] and psychologist Dr. Oakley. Patient does have chronic headache and chronic neck pain which are currently unchanged. Otherwise, she has no physical complaints. ROS: No sign positive: As above Negative: Fever, chills, nausea, vomiting, cough, dyspnea, diaphoresis, chest pain, palpitations, abdominal pain, new back pain, numbness/tingling/weakness. - Related Data Home Medications Medication Instructions Recorded Confirmed Atorvastatin [Lipitor] 10 mg PO HS 01/04/16 08/11/17 Diltiazem CD (24hr) [Cardizem CD] 180 mg PO DAILY 01/04/16 08/11/17 Lactobacillus Combo No.11 2 each PO DAILY 01/04/16 08/11/17 [Probiotic] Levothyroxine [Synthroid] 50 mcg PO 0630 01/04/16 08/11/17 Magnesium 250 mg PO DAILY 01/04/16 08/11/17 Multivitamin [Multivitamins] 1 each PO DAILY 01/04/16 08/11/17 Pantoprazole Sodium 40 mg PO DAILY 01/04/16 08/11/17 lamoTRIgine [Lamictal] 200 mg PO BID 01/04/16 08/11/17 Polyethylene Glycol 3350 [MiraLAX 17 gm PO DAILY PRN 10/02/16 10/02/16 bowel prep] Previous Rx's Medication Instructions Recorded BuPROPion SR (12 HR) [Wellbutrin 150 mg PO DAILY #30 tablet.er 10/06/16 SR] Quetiapine Fumarate [Seroquel] 400 mg PO HS #0 10/06/16 Ziprasidone [Geodon] 20 mg PO BID PRN #30 capsule 10/06/16 Allergies Allergy/AdvReac Type Severity Reaction Status Date / Time [place] Allergy See Verified 03/06/18 16:06 Comments All systems ED: reviewed and negative except as stated. 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 Head: atraumatic, normocephalic Eye: normal appearance, PERRL, EOMI, no scleral icterus, no conjunctival injection ENT: mucous membranes moist, normal external ear exam Neck: normal inspection, trachea midline, full ROM Chest: normal inspection, symmetric chest rise Respiratory: Good respiratory effort. Bilateral breath sounds are clear without wheezing, crackles, or rhonchi. Cardiovascular: Regular rate and rhythm. No clicks, rubs, gallops, or murmors. Normal heart sounds. Abdomen: Bowel sounds present normoactive x-4 quadrants. Abdomen is soft, nondistended, and nontender. No guarding or rebound. No organomegaly noted. Musculoskeletal: Spontaneously moving all extremities. Skin: warm, dry, intact. Neuro: Alert and oriented x4. Sensation light touch intact. Psych: Patient's affect is appropriate for situation. Course Course Narrative: Patient has no physical complaints. Will perform medical workup and attempt medical clearance before consultation toward mental health team. Patient is medically cleared at this time. Patient has been evaluated by mental health team; they recommend admission to their psychiatric services. Admission placed. Vital Signs Temperature 98.2 F 03/06/18 16:05 Pulse Rate 88 03/06/18 16:05 Respiratory Rate 16 03/06/18 16:05 Blood Pressure 124/85 03/06/18 16:05 O2 Sat by Pulse Oximetry 99 03/06/18 16:05 Temperature 98.2 F 03/06/18 16:28 Pulse Rate 88 03/06/18 16:28 Respiratory Rate 16 03/06/18 16:28 Blood Pressure 124/85 03/06/18 16:28 O2 Sat by Pulse Oximetry 99 03/06/18 16:28 Oxygen Delivery Oxygen Delivery Room Air Psych - Lab Data Result diagrams: 03/06/18 16:48 03/06/18 16:48 Lab Results 03/06/18 03/06/18 03/06/18 Range/Units 16:48 16:48 16:53 WBC 6.4 (4.3-11.1) K/mcL RBC 3.83 (3.82-4.97) M/mcL Hgb 12.4 (11.5-15.4) g/dL Hct 36.5 (35.3-44.9) % MCV 95.3 (83.0-100.0) fL MCH 32.4 (28.0-33.3) pg MCHC 34.0 (31.6-35.5) g/dL RDW 12.8 (11.5-14.5) % Plt Count 196 (140-400) K/mcL MPV 9.6 (9.4-12.4) fL Immature Gran % 0.2 (0-4) % Seg Neutrophils % 48.2 % Lymphocytes % 40.6 % Monocytes % 7.8 % Eosinophils % 2.4 % Basophils % 0.8 % Neutrophils # 3.1 (1.6-8.9) K/mcL Lymphocytes # 2.6 (0.6-4.6) K/mcL Monocytes # 0.5 (0.0-1.3) K/mcL Eosinophils # 0.2 (0.0-0.6) K/mcL Basophils # 0.1 (0.0-0.2) K/mcL Sodium 140 (136-145) mEq/L Potassium 3.6 (3.5-5.1) mEq/L Chloride 105 (98-107) mEq/L Carbon Dioxide 26 (23-29) mEq/L BUN 13 (6-20) mg/dL Creatinine 0.76 (0.60-1.20) mg/dL Est GFR ( Amer) > 60 (> 60) Est GFR (Non-Af Amer) > 60 (> 60) BUN/Creatinine Ratio 17 (6-26) Glucose 115 H (70-105) mg/dL Calculated Osmolality 291 (280-300) Calcium 9.4 (8.6-10.3) mg/dL Urine Color Yellow (Yellow) Urine Clarity Clear (Clear) Urine pH 7.0 (5.0-8.0) pH Units Ur Specific [place] 1.014 (1.010-1.025) Urine Protein Negative (Neg-Trace) mg/dL Urine Glucose (UA) Normal (Normal) mg/dL Urine Ketones Negative (Negative) mg/dL Urine Blood Negative (Negative) Urine Nitrite Negative (Negative) Urine Bilirubin Negative (Negative) Urine Urobilinogen Normal (Normal) mg/dL Ur Leukocyte Esterase Negative (Negative) Salicylates < 2.5 L (15.0-30.0) mg/dL Urine Opiates Screen (Vnfdfd=294) ng/mL Acetaminophen < 10 L (10-20) mcg/mL Ur Barbiturates Screen (Afmzty=508) ng/mL Ur Phencyclidine Scrn (Cutoff=25) ng/mL Ur Amphetamines Screen (Ktvivl=7293) ng/mL U Benzodiazepines Scrn (Nzbmzu=494) ng/mL Urine Cocaine Screen (Cutoff= 300) ng/mL U Marijuana (THC) Screen (Cutoff = 50) ng/mL Ur Drug Screen Interp Ethyl Alcohol < 10 (Less than 10) mg/dL 03/06/18 Range/Units 16:57 WBC (4.3-11.1) K/mcL RBC (3.82-4.97) M/mcL Hgb (11.5-15.4) g/dL Hct (35.3-44.9) % MCV (83.0-100.0) fL MCH (28.0-33.3) pg MCHC (31.6-35.5) g/dL RDW (11.5-14.5) % Plt Count (140-400) K/mcL MPV (9.4-12.4) fL Immature Gran % (0-4) % Seg Neutrophils % % Lymphocytes % % Monocytes % % Eosinophils % % Basophils % % Neutrophils # (1.6-8.9) K/mcL Lymphocytes # (0.6-4.6) K/mcL Monocytes # (0.0-1.3) K/mcL Eosinophils # (0.0-0.6) K/mcL Basophils # (0.0-0.2) K/mcL Sodium (136-145) mEq/L Potassium (3.5-5.1) mEq/L Chloride (98-107) mEq/L Carbon Dioxide (23-29) mEq/L BUN (6-20) mg/dL Creatinine (0.60-1.20) mg/dL Est GFR ( Amer) (> 60) Est GFR (Non-Af Amer) (> 60) BUN/Creatinine Ratio (6-26) Glucose (70-105) mg/dL Calculated Osmolality (280-300) Calcium (8.6-10.3) mg/dL Urine Color (Yellow) Urine Clarity (Clear) Urine pH (5.0-8.0) pH Units Ur Specific [place] (1.010-1.025) Urine Protein (Neg-Trace) mg/dL Urine Glucose (UA) (Normal) mg/dL Urine Ketones (Negative) mg/dL Urine Blood (Negative) Urine Nitrite (Negative) Urine Bilirubin (Negative) Urine Urobilinogen (Normal) mg/dL Ur Leukocyte Esterase (Negative) Salicylates (15.0-30.0) mg/dL Urine Opiates Screen Negative (Tpmete=898) ng/mL Acetaminophen (10-20) mcg/mL Ur Barbiturates Screen Negative (Kkwkrl=388) ng/mL Ur Phencyclidine Scrn Negative (Cutoff=25) ng/mL Ur Amphetamines Screen Negative (Ujuggv=9708) ng/mL U Benzodiazepines Scrn Positive H (Bjvnrm=620) ng/mL Urine Cocaine Screen Negative (Cutoff= 300) ng/mL U Marijuana (THC) Screen Negative (Cutoff = 50) ng/mL Ur Drug Screen Interp See Below Ethyl Alcohol (Less than 10) mg/dL Psychiatric Medical Clearance - Medical Clearance Checklist Medical History: (This Medical Record has been edited. Action required.) No Social History Section defined Current Vitals: Last Vital Signs Temp 98.2 F 03/06/18 16:28 Pulse 88 03/06/18 16:28 Resp 16 03/06/18 16:28 BP 124/85 03/06/18 16:28 Pulse Ox 99 03/06/18 16:28 Psychiatric Lab Panel: Drug Levels and Toxicity 03/06/18 03/06/18 16:48 16:57 Urine Opiates Screen Negative Acetaminophen < 10 L Ur Barbiturates Screen Negative Ur Phencyclidine Scrn Negative Ur Amphetamines Screen Negative U Benzodiazepines Scrn Positive H Urine Cocaine Screen Negative U Marijuana (THC) Screen Negative Ethyl Alcohol < 10 Abnormal Labs: Abnormal lab results Glucose 115 mg/dL (70-105) H 03/06/18 16:48 Salicylates < 2.5 mg/dL (15.0-30.0) L 03/06/18 16:48 Acetaminophen < 10 mcg/mL (10-20) L 03/06/18 16:48 U Benzodiazepines Scrn Positive ng/mL (Recick=[id number]) H 03/06/18 16:57
--- NOTE | 2018-03-06 17:34 | Emergency Department Note ---
Disposition Clinical Impression: Depression Disposition: Admitted As Inpatient Time of Disposition: 19:33 General Adult HPI - General Chief complaint: ED Psychiatric Symptoms Stated complaint: SI Time Seen by Provider: 03/06/18 16:04 Source: patient Limitations: no limitations - History of Present Illness Pain Scale: 0 - Related Data Home Medications Medication Instructions Recorded Confirmed Atorvastatin [Lipitor] 10 mg PO HS 01/04/16 08/11/17 Diltiazem CD (24hr) [Cardizem CD] 180 mg PO DAILY 01/04/16 08/11/17 Lactobacillus Combo No.11 2 each PO DAILY 01/04/16 08/11/17 [Probiotic] Levothyroxine [Synthroid] 50 mcg PO 0630 01/04/16 08/11/17 Magnesium 250 mg PO DAILY 01/04/16 08/11/17 Multivitamin [Multivitamins] 1 each PO DAILY 01/04/16 08/11/17 Pantoprazole Sodium 40 mg PO DAILY 01/04/16 08/11/17 lamoTRIgine [Lamictal] 200 mg PO BID 01/04/16 08/11/17 Polyethylene Glycol 3350 [MiraLAX 17 gm PO DAILY PRN 10/02/16 10/02/16 bowel prep] Metoprolol 08/11/17 Mucinex 08/11/17 Tylenol 08/11/17 Vitamin C 08/11/17 Previous Rx's Medication Instructions Recorded BuPROPion SR (12 HR) [Wellbutrin 150 mg PO DAILY #30 tablet.er 10/06/16 SR] Quetiapine Fumarate [Seroquel] 400 mg PO HS #0 10/06/16 Ziprasidone [Geodon] 20 mg PO BID PRN #30 capsule 10/06/16 diazePAM [Valium] 2 mg PO BID PRN #0 10/06/16 Allergies Allergy/AdvReac Type Severity Reaction Status Date / Time [place] Allergy See Verified 03/06/18 16:06 Comments Past Medical History - Past Medical History Medical history: Reports: non-contributory Surgical history: Reports: hysterectomy Psychiatric history: Reports: previous psychiatric hospitalization, bipolar, PTSD, prior suicide attempt 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 SUPPORT ENGINEER history - Social History Smoking Status: Never smoker Smokeless Tobacco Status: No Alcohol use: Reports: none Drug use: Reports: none Physical Exam - General Limitations: no limitations General appearance: alert, in no apparent distress Course Vital Signs Temperature 98.2 F 03/06/18 16:05 Pulse Rate 88 03/06/18 16:05 Respiratory Rate 16 03/06/18 16:05 Blood Pressure 124/85 03/06/18 16:05 O2 Sat by Pulse Oximetry 99 03/06/18 16:05 Temperature 98.2 F 03/06/18 16:28 Pulse Rate 88 03/06/18 16:28 Respiratory Rate 16 03/06/18 16:28 Blood Pressure 124/85 03/06/18 16:28 O2 Sat by Pulse Oximetry 99 03/06/18 16:28 Oxygen Delivery Oxygen Delivery Room Air Medical Decision Making - Lab Data Result diagrams: 03/06/18 16:48 Lab Results 03/06/18 03/06/18 03/06/18 Range/Units 16:48 16:53 16:57 Sodium 140 (136-145) mEq/L Potassium 3.6 (3.5-5.1) mEq/L Chloride 105 (98-107) mEq/L Carbon Dioxide 26 (23-29) mEq/L BUN 13 (6-20) mg/dL Creatinine 0.76 (0.60-1.20) mg/dL Est GFR ( Amer) > 60 (> 60) Est GFR (Non-Af Amer) > 60 (> 60) BUN/Creatinine Ratio 17 (6-26) Glucose 115 H (70-105) mg/dL Calculated Osmolality 291 (280-300) Calcium 9.4 (8.6-10.3) mg/dL Urine Color Yellow (Yellow) Urine Clarity Clear (Clear) Urine pH 7.0 (5.0-8.0) pH Units Ur Specific [place] 1.014 (1.010-1.025) Urine Protein Negative (Neg-Trace) mg/dL Urine Glucose (UA) Normal (Normal) mg/dL Urine Ketones Negative (Negative) mg/dL Urine Blood Negative (Negative) Urine Nitrite Negative (Negative) Urine Bilirubin Negative (Negative) Urine Urobilinogen Normal (Normal) mg/dL Ur Leukocyte Esterase Negative (Negative) Salicylates < 2.5 L (15.0-30.0) mg/dL Urine Opiates Screen Negative (Txfnyn=787) ng/mL Acetaminophen < 10 L (10-20) mcg/mL Ur Barbiturates Screen Negative (Juevyk=034) ng/mL Ur Phencyclidine Scrn Negative (Cutoff=25) ng/mL Ur Amphetamines Screen Negative (Zjpeio=6139) ng/mL U Benzodiazepines Scrn Positive H (Rfauvb=061) ng/mL Urine Cocaine Screen Negative (Cutoff= 300) ng/mL U Marijuana (THC) Screen Negative (Cutoff = 50) ng/mL Ur Drug Screen Interp See Below Ethyl Alcohol < 10 (Less than 10) mg/dL Attestation Statement - Attestation Attestation: I examined this patient and my medical decision-making was reviewed with the Resident Physician. I agree with the documented findings, disposition and treatment plan as described except to the extent set forth below. Patient presents to the emergency department the chief complaint of suicidal thoughts. No specific plan. History of the same. Patient is in no distress sitting in bed on examination. Flat affect. Plan. Medical clearance and evaluation by 1A. Patient is medically cleared at this time. Awaiting 1A consult. Patient admitted to psych.
[2018-03-06 18:07] LABS: Acetaminophen < 10 mcg/mL (10-20); BUN/Creatinine Ratio 17 (6-26); Blood Urea Nitrogen 13 mg/dL (6-20); Calcium 9.4 mg/dL (8.6-10.3); Carbon Dioxide 26 mEq/L (23-29); Chloride 105 mEq/L (98-107); Ethanol < 10 mg/dL (Less than 10); Glucose 115 mg/dL (70-105); Osmolality,Calculated 291 (280-300); Potassium 3.6 mEq/L (3.5-5.1); Salicylate < 2.5 mg/dL (15.0-30.0); Sodium 140 mEq/L (136-145); eGFR For Non-African Americans > 60 (> 60)
[2018-03-06] MEDS ORDERED: Metoclopramide 10 MG/2 ML VIAL IM ONE (18:08)
[2018-03-06] MEDS ORDERED: Ketorolac 15 MG/ML VIAL IM STA (18:09)
[2018-03-06 18:18] LABS: Amphetamine Screen,Urine Negative ng/mL (Cutoff=1000); Barbiturate Screen,Urine Negative ng/mL (Cutoff=200); Benzodiazepines Screen,Urine Positive ng/mL (Cutoff=200); Cannabinoid Screen,Urine Negative ng/mL (Cutoff = 50); Cocaine Screen,Urine Negative ng/mL (Cutoff= 300); Opiate Screen,Urine Negative ng/mL (Cutoff=300); Phencyclidine Screen,Urine Negative ng/mL (Cutoff=25)
[2018-03-06 18:20] LABS: Bilirubin,Urine Negative (Negative); Blood,Urine Negative (Negative); Clarity,Urine Clear (Clear); Color,Urine Yellow (Yellow); Glucose,Urine (UA) Normal (Normal); Ketones,Urine Negative (Negative); Leukocyte Esterase,Urine Negative (Negative); Nitrite,Urine Negative (Negative); Protein,Urine Negative (Neg-Trace); Specific Gravity,Urine 1.014 (1.010-1.025); Urobilinogen,Urine Normal (Normal)
[2018-03-06 19:34] LABS: Basophils # 0.1 K/mcL (0.0-0.2); Basophils % 0.8 %; Eosinophils # 0.2 K/mcL (0.0-0.6); Eosinophils % 2.4 %; Hematocrit 36.5 % (35.3-44.9); Hemoglobin 12.4 g/dL (11.5-15.4); Immature Granulocytes % 0.2 % (0-4); Lymphocytes # 2.6 K/mcL (0.6-4.6); Lymphocytes % 40.6 %; Mean Corpuscular Hemoglobin 32.4 pg (28.0-33.3); Mean Corpuscular Volume 95.3 fL (83.0-100.0); Mean Platelet Volume 9.6 fL (9.4-12.4); Monocytes # 0.5 K/mcL (0.0-1.3); Monocytes % 7.8 %; Neutrophils # 3.1 K/mcL (1.6-8.9); Platelet Count 196 K/mcL (140-400); Red Blood Count 3.83 M/mcL (3.82-4.97); Red Cell Distribution Width 12.8 % (11.5-14.5); Segmented Neutrophils % 48.2 %
[2018-03-06] MEDS ORDERED: *HR* LORazepam 1 MG TABLET PO PRN (21:52)
[2018-03-06] MEDS ORDERED: Mag Hydrox/Al Hydrox/Simeth 30 ML UDC PO PRN (21:52)
[2018-03-06] MEDS ORDERED: *HR* LORazepam 2 MG/ML VIAL IM PRN (21:52)
[2018-03-06] MEDS ORDERED: hydrOXYzine pamoate 25 MG CAPSULE PO PRN (21:52)
[2018-03-06] MEDS ORDERED: MOM Conc 10 ML UD.LIQ PO PRN (21:52)
[2018-03-06] MEDS ORDERED: Ibuprofen 400 MG TABLET PO PRN (21:52)
[2018-03-06] MEDS ORDERED: Haloperidol Lactate 5 MG/ML VIAL IM PRN (21:52)
[2018-03-06] MEDS ORDERED: traZODone 50 MG TABLET PO PRN (21:52)
[2018-03-06] MEDS ORDERED: Melatonin 3 MG TABLET PO PRN (21:59)
[2018-03-06] MEDS: lamoTRIgine 100 MG TABLET PO SCH (23:03)
[2018-03-06] MEDS: diazePAM 10 MG TABLET PO SCH (23:09)
[2018-03-07] MEDS ORDERED: Ascorbic Acid 500 MG TABLET PO SCH (09:00)
[2018-03-07] MEDS ORDERED: Vilazodone Hcl [Viibryd] 20 MG PO SCH (09:00)
[2018-03-07] MEDS: Diltiazem CD (24hr) 120 MG CAPSULE PO SCH (12:15)
[2018-03-07] MEDS: Multivit/Ca/Min/Fe/FA 1 TAB TABLET PO SCH (12:16)
[2018-03-07] MEDS: diazePAM 10 MG TABLET PO SCH ×2 (12:16→21:49)
[2018-03-07] MEDS: Lactobacillus 1 EACH CAP.SPRINK PO SCH (12:16)
[2018-03-07] MEDS: lamoTRIgine 100 MG TABLET PO SCH ×2 (12:16→21:49)
[2018-03-07] MEDS: Magnesium Oxide 400 MG TABLET PO SCH (12:16)
[2018-03-07] MEDS ORDERED: Ascorbic Acid 500 MG TABLET PO ONE (13:39)
[2018-03-07] MEDS ORDERED: Multivit/Ca/Min/Fe/FA 1 TAB TABLET PO ONE (13:39)
[2018-03-07] MEDS ORDERED: Diltiazem CD (24hr) 120 MG CAPSULE PO ONE (13:39)
[2018-03-07] MEDS ORDERED: Magnesium Oxide 400 MG TABLET PO ONE (13:39)
[2018-03-07] MEDS ORDERED: Lactobacillus 1 EACH CAP.SPRINK PO ONE (13:39)
[2018-03-07] MEDS ORDERED: diazePAM 10 MG TABLET PO ONE (13:39)
[2018-03-07] MEDS ORDERED: lamoTRIgine 100 MG TABLET PO ONE (13:39)
--- NOTE | 2018-03-07 14:00 | Psychiatry History & Physical ---
Date of Encounter: 03/07/18 Time of Encounter: 11:00 History of Present Illness Patient Stated Chief Complaint: Suicidal ideation and depression Medicare Admission Attestation: For traditional Medicare patients the provided hospital inpatient services are reasonable and necessary and in the case of services not specified as inpatient-only under 42 CFR 419.22 (n), that they are appropriately provided as inpatient services in accordance 42 CFR 412.3. For Critical [facility] the patient may reasonably be expected to be discharged or transferred to a hospital within 96 hours after admission to the Critical Access Hospital. Admitted From: Emergency Dept History of Present Illness: Ms. Estrada is a 52 year old female admitted from the emergency department for depression and suicidal ideation. She was referred by therapist. Patient had long history of schizoaffective disorder bipolar type and anxiety, she had several hospitalizations most recent was in 10/02/2016.. She is followed up at [facility] she see his therapist and Dr. Alvarez for medication. Patient had recent medication changes and feel output adjustment and was complaining of feeling depressed and anxious and poorly motivated. Patient denied any recent crisis or situation at home as a trigger. She reports poor motivation and lack of activities. Patient recently was tapered off Wellbutrin and started on vibriid, she also on Lamictal and Seroquel and diazepam for an anxiety. Patient had remote history of suicide attempts in the past by Calvin monoxide. Past Med Surg Social Fam HX - Past Medical History Medical history: non-contributory - Past Psychiatric History Psychiatric history: Reports: bipolar, depression, prior suicide attempt, previous psychiatric hospitalization - Past Surgical History Surgical History: hysterectomy - Social History Smoking Status: Never smoker Smokeless Tobacco Status: No Alcohol use: none Drug use: none - Family History Father Adopted: [place]: susan dee Age: 33 Family Member Ethnicity: Non- Living Status: Age at : 33 Cause of : suicide Hx Family Cardiac Disorders: Yes (HTN,cholesterol) Hx Family Respiratory Disorders: No Hx Family Cancer: No Hx Family GI Disorders: No Hx Family Genitourinary Disorders: No Hx Family Endocrine Disorder: No Hx Family Musculoskeletal Disorders: No Hx Family Neuromuscular Disorders: No Hx Family Neurologic Disorders: No Hx Family HEENT Disorders: No Hx Family Autoimmune Disorders: No Hx Family Reproductive Disorders: No Hx Family Psychosocial Disorders: Yes (schizophrenia) Hx Family Medical Disorders: No Medications & Allergies Atorvastatin [Lipitor] 10 mg PO HS 08/16/16 [History] Lactobacillus Combo No.11 [Probiotic] 2 tab PO DAILY 01/04/16 [History] Levothyroxine [Synthroid] 50 mcg PO 0630 01/04/16 [History] Magnesium 250 mg PO DAILY 01/04/16 [History] Multivitamin [Multivitamins] 1 each PO DAILY 01/04/16 [History] Pantoprazole Sodium 40 mg PO BID 01/04/16 [History] lamoTRIgine [Lamictal] 200 mg PO BID 01/04/16 [History] Quetiapine Fumarate [Seroquel] 400 mg PO HS #0 10/06/16 [Rx] Acetaminophen/Aspirin/Caffeine [Excedrin EX] 2 tab PO Q6HR PRN 03/06/18 [History] Ascorbic Acid [Vitamin C] 500 mg PO DAILY 03/06/18 [History] Dicyclomine [Bentyl] 10 mg PO QID PRN 03/06/18 [History] Melatonin 3 mg PO HS PRN 03/06/18 [History] Vilazodone HCl [Viibryd] 20 mg PO DAILY 03/06/18 [History] diazePAM [Valium] 10 mg PO BID 03/06/18 [History] dilTIAZem HCl [Diltiazem 24Hr Cd] 120 mg PO DAILY 03/06/18 [History] Allergy/AdvReac Type Severity Reaction Status Date / Time [place] Allergy See Verified 03/06/18 16:06 Comments Review of Systems Psychiatric: Reports: depression, anxiety, suicidal ideation, mood swings Exam - HEENT Head exam IM: Present: atraumatic Eye exam IM: Present: EOMI, normal appearance, PERRL ENT exam IM: Present: normal exam - Neurological Neurological exam: Present: CN II-XII intact - Respiratory Respiratory exam IM: Present: CTAB - GI/Abdominal GI/Abdominal exam IM: Present: normal bowel sounds, soft. Absent: tenderness - Extremities Extremities exam IM: Present: full ROM - Skin Skin exam IM: Present: dry, warm - Constitutional Vitals: Temp Pulse Resp BP Pulse Ox 99 F 91 20 128/86 96 03/07/18 09:00 03/07/18 09:00 03/07/18 09:00 03/07/18 09:00 03/07/18 09:00 General appearance: age & developmentally appropriate, well-groomed, well- nourished - Musculoskeletal Gait: normal Station: relaxed Strength & Tone: normal for patient - Psychiatric Patient Orientation: Yes Person, Yes Time, Yes Place Level of alertness: Alert Behavior: calm, cooperative Psychomotor activity: Slowed Eye Contact: Maintains Eye Contact Mood Description: Euthymic/stable, Depressed Affect description: congruent with mood, constricted, blunted, anxious Speech Volume: Normal, Soft/Quiet Speech pattern: normal rate, normal rhythm, normal tone, fluent, spontaneous Language & Vocabulary: consistent with education Thought Process: Linear, Goal Oriented Thought Content: Yes Suicidal ideation, No Homicidal ideation, No Overt delusions Perceptual Disturbances: No Auditory hallucinations, No Visual hallucinations Attention Span Ability: Capable of Focused Attention Memory Description: Grossly Intact Patient Reliability: Reliable Historian Fund of knowledge: Yes abstraction ability, Yes average, Yes aware of current ev ents Intelligence Estimate: Average Judgment: Limited Insight: Partial Results - Drug Levels and Toxicology Drug Levels and Toxicology: Drug Levels and Toxicity 03/06/18 03/06/18 16:48 16:57 Urine Opiates Screen Negative Acetaminophen < 10 L Ur Barbiturates Screen Negative Ur Phencyclidine Scrn Negative Ur Amphetamines Screen Negative U Benzodiazepines Scrn Positive H Urine Cocaine Screen Negative U Marijuana (THC) Screen Negative Ethyl Alcohol < 10 - Labs Labs: Laboratory Last Values WBC 6.4 K/mcL (4.3-11.1) 03/06/18 16:48 RBC 3.83 M/mcL (3.82-4.97) 03/06/18 16:48 Hgb 12.4 g/dL (11.5-15.4) 03/06/18 16:48 Hct 36.5 % (35.3-44.9) 03/06/18 16:48 MCV 95.3 fL (83.0-100.0) 03/06/18 16:48 MCH 32.4 pg (28.0-33.3) 03/06/18 16:48 MCHC 34.0 g/dL (31.6-35.5) 03/06/18 16:48 RDW 12.8 % (11.5-14.5) 03/06/18 16:48 Plt Count 196 K/mcL (140-400) 03/06/18 16:48 MPV 9.6 fL (9.4-12.4) 03/06/18 16:48 Immature Gran % 0.2 % (0-4) 03/06/18 16:48 Seg Neutrophils % 48.2 % 03/06/18 16:48 Lymphocytes % 40.6 % 03/06/18 16:48 Monocytes % 7.8 % 03/06/18 16:48 Eosinophils % 2.4 % 03/06/18 16:48 Basophils % 0.8 % 03/06/18 16:48 Neutrophils # 3.1 K/mcL (1.6-8.9) 03/06/18 16:48 Lymphocytes # 2.6 K/mcL (0.6-4.6) 03/06/18 16:48 Monocytes # 0.5 K/mcL (0.0-1.3) 03/06/18 16:48 Eosinophils # 0.2 K/mcL (0.0-0.6) 03/06/18 16:48 Basophils # 0.1 K/mcL (0.0-0.2) 03/06/18 16:48 Sodium 140 mEq/L (136-145) 03/06/18 16:48 Potassium 3.6 mEq/L (3.5-5.1) 03/06/18 16:48 Chloride 105 mEq/L (98-107) 03/06/18 16:48 Carbon Dioxide 26 mEq/L (23-29) 03/06/18 16:48 BUN 13 mg/dL (6-20) 03/06/18 16:48 Creatinine 0.76 mg/dL (0.60-1.20) 03/06/18 16:48 Est GFR ( Amer) > 60 (> 60) 03/06/18 16:48 Est GFR (Non-Af Amer) > 60 (> 60) 03/06/18 16:48 BUN/Creatinine Ratio 17 (6-26) 03/06/18 16:48 Glucose 115 mg/dL (70-105) H 03/06/18 16:48 Calculated Osmolality 291 (280-300) 03/06/18 16:48 Calcium 9.4 mg/dL (8.6-10.3) 03/06/18 16:48 Urine Color Yellow (Yellow) 03/06/18 16:53 Urine Clarity Clear (Clear) 03/06/18 16:53 Urine pH 7.0 pH Units (5.0-8.0) 03/06/18 16:53 Ur Specific [place] 1.014 (1.010-1.025) 03/06/18 16:53 Urine Protein Negative mg/dL (Neg-Trace) 03/06/18 16:53 Urine Glucose (UA) Normal mg/dL (Normal) 03/06/18 16:53 Urine Ketones Negative mg/dL (Negative) 03/06/18 16:53 Urine Blood Negative (Negative) 03/06/18 16:53 Urine Nitrite Negative (Negative) 03/06/18 16:53 Urine Bilirubin Negative (Negative) 03/06/18 16:53 Urine Urobilinogen Normal mg/dL (Normal) 03/06/18 16:53 Ur Leukocyte Esterase Negative (Negative) 03/06/18 16:53 Salicylates < 2.5 mg/dL (15.0-30.0) L 03/06/18 16:48 Urine Opiates Screen Negative ng/mL (Zindtr=901) 03/06/18 16:57 Acetaminophen < 10 mcg/mL (10-20) L 03/06/18 16:48 Ur Barbiturates Screen Negative ng/mL (Qlfsng=495) 03/06/18 16:57 Ur Phencyclidine Scrn Negative ng/mL (Cutoff=25) 03/06/18 16:57 Ur Amphetamines Screen Negative ng/mL (Sjebcf=5200) 03/06/18 16:57 U Benzodiazepines Scrn Positive ng/mL (Gocioc=839) H 03/06/18 16:57 Urine Cocaine Screen Negative ng/mL (Cutoff= 300) 03/06/18 16:57 U Marijuana (THC) Screen Negative ng/mL (Cutoff = 50) 03/06/18 16:57 Ur Drug Screen Interp See Below 03/06/18 16:57 Ethyl Alcohol < 10 mg/dL (Less than 10) 03/06/18 16:48 Assessment and Plan (1) Schizoaffective disorder, bipolar type Current visit: No Status: Acute Plan: Admit inpatient for safety and stabilization, Close observation, Suicide Precautions per unit protocol, Encourage participation in unit milieu, Group Therapy, Monitor sleep, Monitor appetite Risks, benefits, side effects, alternatives discussed w/pt: Yes Patient agreeable to treatment: Yes Estimated Length of Stay (Days): 5
[2018-03-08] MEDS: Multivit/Ca/Min/Fe/FA 1 TAB TABLET PO SCH (08:50)
[2018-03-08] MEDS: Ascorbic Acid 500 MG TABLET PO SCH (08:50)
[2018-03-08] MEDS: Diltiazem CD (24hr) 120 MG CAPSULE PO SCH (08:51)
[2018-03-08] MEDS: Lactobacillus 1 EACH CAP.SPRINK PO SCH (08:51)
[2018-03-08] MEDS: lamoTRIgine 100 MG TABLET PO SCH ×2 (08:51→22:06)
[2018-03-08] MEDS: diazePAM 10 MG TABLET PO SCH ×2 (08:51→20:57)
[2018-03-08] MEDS: Magnesium Oxide 400 MG TABLET PO SCH (08:52)
[2018-03-08] MEDS: Vilazodone Hcl [Viibryd] 20 MG PO SCH (12:15)
--- NOTE | 2018-03-08 13:02 | Psychiatry Progress Note ---
Date of Encounter: 03/08/18 Time of Encounter: 12:58 Subjective Interval history: Patient seen for follow-up. Case discussed with treatment team. Patient reports having interrupted sleep and having dreams that wakes her up. She participated in groups. Compliant with medication. Denies suicidal ideation. She is not well motivated to make changes to her daily activities. She was educated about anxiety and management of the time and finding a structure. She denied any specific side effects from medication. Review of Systems Psychiatric: Reports: depression, anxiety, suicidal ideation, mood swings Results - Vital Signs Vital Signs: Temp Pulse Resp BP Pulse Ox 97.8 F 101 16 112/79 96 03/08/18 09:00 03/08/18 09:00 03/08/18 09:00 03/08/18 09:00 03/08/18 09:00 Assessment and Plan (1) Schizoaffective disorder, bipolar type Current visit: No Status: Acute Plan: Continue hospitalization, Close observation, Suicide Precautions per unit protocol, Encourage participation in unit milieu, Group Therapy, Monitor sleep, Monitor appetite Risks, benefits, side effects, alternatives discussed w/pt: Yes Patient agreeable to treatment: Yes Consult Discharge Plan - Plan Referrals: [facility] [Outside] - 03/13/18 11:20 am (The above appointment is with for Dr. Knight for outpatient psychiatric assessment and medication management services. Please arrive 10 minutes early to all appointments to complete the check-in process. Please bring your insurance card and photo ID. If you are unable to keep any scheduled appointment, 24 hour business notice of cancellation is expected. The above appointment(s) reflects first availability. You may contact the office regularly to check for cancellations that may allow you to be seen sooner. ) Lenin Oakley, PhD [Outside] - 03/13/18 3:30 pm (The above appointment is with Dr. Oakley for outpatient mental health counseling services.) Psychiatry Exam - Constitutional Vitals: Temp Pulse Resp BP Pulse Ox 97.8 F 101 16 112/79 96 03/08/18 09:00 03/08/18 09:00 03/08/18 09:00 03/08/18 09:00 03/08/18 09:00 General appearance: age & developmentally appropriate, well-groomed, well- nourished, obese - Musculoskeletal Gait: normal Station: relaxed Strength & Tone: normal for patient - Psychiatric Patient Orientation: Yes Person, Yes Time, Yes Place Level of alertness: Alert Behavior: calm, cooperative, guarded, dramatic Psychomotor activity: Normal Eye Contact: Maintains Eye Contact Mood Description: Euthymic/stable Affect description: congruent with mood, blunted Speech Volume: Normal Speech pattern: normal rate, normal rhythm, normal tone, fluent, spontaneous Language & Vocabulary: consistent with education Thought Process: Linear, Goal Oriented Thought Content: No Suicidal ideation, No Homicidal ideation, No Overt delusions Perceptual Disturbances: No Auditory hallucinations, No Visual hallucinations Attention Span Ability: Capable of Focused Attention Memory Description: Grossly Intact Patient Reliability: Reliable Historian Fund of knowledge: Yes abstraction ability, Yes aware of current events Intelligence Estimate: Average Judgment: Limited Insight: Partial
[2018-03-08] MEDS: Acetaminophen/Aspirin/Caffeine TABLET PO PRN (23:53)
[2018-03-09] MEDS: Magnesium Oxide 400 MG TABLET PO SCH (10:18)
[2018-03-09] MEDS: Lactobacillus 1 EACH CAP.SPRINK PO SCH (10:18)
[2018-03-09] MEDS: Vilazodone Hcl [Viibryd] 20 MG PO SCH (10:18)
[2018-03-09] MEDS: Diltiazem CD (24hr) 120 MG CAPSULE PO SCH (10:18)
[2018-03-09] MEDS: lamoTRIgine 100 MG TABLET PO SCH ×2 (10:19→21:56)
[2018-03-09] MEDS: Multivit/Ca/Min/Fe/FA 1 TAB TABLET PO SCH (10:19)
[2018-03-09] MEDS: Ascorbic Acid 500 MG TABLET PO SCH (10:20)
[2018-03-09] MEDS: diazePAM 10 MG TABLET PO SCH (10:33)
--- NOTE | 2018-03-09 13:27 | Psychiatry Progress Note ---
Date of Encounter: 03/09/18 Time of Encounter: 13:24 Subjective Interval history: Patient seen for follow-up. Case discussed with nursing staff. Staff report patient is upset because her family did not visits, she seemed to be seeking attention. Otherwise she participated in groups and "medication compliant and denies suicidal ideation. She displayed superficial affect, low motivation. Denied any side effects from medication Review of Systems Psychiatric: Reports: depression, anxiety, suicidal ideation, mood swings Results - Vital Signs Vital Signs: Temp Pulse Resp BP Pulse Ox 97.5 F L 88 18 107/75 97 03/09/18 09:00 03/09/18 09:00 03/09/18 09:00 03/09/18 09:00 03/09/18 09:00 - Drug Levels and Toxicology Drug Levels and Toxicology: Drug Levels and Toxicity 03/06/18 18:02 Lamotrigine 4.5 - Labs Labs: Laboratory Results - last 24 hr 03/06/18 18:02 Lamotrigine 4.5 Assessment and Plan (1) Schizoaffective disorder, bipolar type Current visit: No Status: Acute Plan: Continue hospitalization, Close observation, Suicide Precautions per unit protocol, Encourage participation in unit milieu, Group Therapy, Monitor sleep, Monitor appetite Risks, benefits, side effects, alternatives discussed w/pt: Yes Patient agreeable to treatment: Yes Consult Discharge Plan - Plan Referrals: [facility] [Outside] - 03/13/18 11:20 am (The above appointment is with for Dr. Knight for outpatient psychiatric assessment and medication management services. Please arrive 10 minutes early to all appointments to complete the check-in process. Please bring your insurance card and photo ID. If you are unable to keep any scheduled appointment, 24 hour business notice of cancellation is expected. The above appointment(s) reflects first availability. You may contact the office regularly to check for cancellations that may allow you to be seen sooner. ) Lenin Oakley, PhD [Outside] - 03/13/18 3:30 pm (The above appointment is with Dr. Oakley for outpatient mental health counseling services.) Psychiatry Exam - Constitutional Vitals: Temp Pulse Resp BP Pulse Ox 97.5 F L 88 18 107/75 97 03/09/18 09:00 03/09/18 09:00 03/09/18 09:00 03/09/18 09:00 03/09/18 09:00 General appearance: age & developmentally appropriate, well-groomed, well- nourished, obese - Musculoskeletal Gait: normal Station: relaxed Strength & Tone: normal for patient - Psychiatric Patient Orientation: Yes Person, Yes Time, Yes Place Level of alertness: Alert Behavior: calm, cooperative Psychomotor activity: Slowed Eye Contact: Maintains Eye Contact Mood Description: Euthymic/stable Affect description: congruent with mood, constricted, flat Speech Volume: Normal Speech pattern: normal rate, normal rhythm, normal tone, fluent, spontaneous, limited Language & Vocabulary: consistent with education Thought Process: Linear, Goal Oriented Thought Content: No Suicidal ideation, No Homicidal ideation, No Overt delusions Perceptual Disturbances: No Auditory hallucinations, No Visual hallucinations Attention Span Ability: Capable of Focused Attention Memory Description: Grossly Intact Patient Reliability: Questionable Historian Fund of knowledge: Yes abstraction ability, Yes aware of current events Intelligence Estimate: Average Judgment: Limited Insight: Partial
[2018-03-09] MEDS: diazePAM 10 MG TABLET PO PRN (21:57)
[2018-03-10] MEDS: Magnesium Oxide 400 MG TABLET PO SCH (09:14)
[2018-03-10] MEDS: Ascorbic Acid 500 MG TABLET PO SCH (09:14)
[2018-03-10] MEDS: Diltiazem CD (24hr) 120 MG CAPSULE PO SCH (09:15)
[2018-03-10] MEDS: lamoTRIgine 100 MG TABLET PO SCH ×2 (09:15→20:34)
[2018-03-10] MEDS: Multivit/Ca/Min/Fe/FA 1 TAB TABLET PO SCH (09:15)
[2018-03-10] MEDS: Lactobacillus 1 EACH CAP.SPRINK PO SCH (09:15)
[2018-03-10] MEDS: Vilazodone Hcl [Viibryd] 20 MG PO SCH (09:18)
--- NOTE | 2018-03-10 11:58 | Psychiatry Progress Note ---
Date of Encounter: 03/10/18 Time of Encounter: 11:55 Subjective Interval history: Patient seen for follow-up. Case discussed was nursing staff. She reports some somatic complaints related to IBS, advised to follow-up with her physician. She continued to have superficial affect and shallow conversations. She tell me that she is making no reports for activities after discharge from the hospital but would not's specify the activities or goals. She is not reporting any suicidal ideation. She denies any problem with sleep. She attended groups. She denied any side effects of medication. Review of Systems Psychiatric: Reports: depression, anxiety, suicidal ideation, mood swings Results - Vital Signs Vital Signs: Temp Pulse Resp BP Pulse Ox 98.3 F 75 20 104/67 100 03/10/18 09:00 03/10/18 09:00 03/10/18 09:00 03/10/18 09:00 03/10/18 09:00 Assessment and Plan (1) Schizoaffective disorder, bipolar type Current visit: No Status: Acute Plan: Continue hospitalization, Close observation, Suicide Precautions per unit protocol, Encourage participation in unit milieu, Group Therapy, Monitor sleep, Monitor appetite Risks, benefits, side effects, alternatives discussed w/pt: Yes Patient agreeable to treatment: Yes Consult Discharge Plan - Plan Referrals: [facility] [Outside] - 03/13/18 11:20 am (The above appointment is with for Dr. Knight for outpatient psychiatric assessment and medication management services. Please arrive 10 minutes early to all appointments to complete the check-in process. Please bring your insurance card and photo ID. If you are unable to keep any scheduled appointment, 24 hour business notice of cancellation is expected. The above appointment(s) reflects first availability. You may contact the office regularly to check for cancellations that may allow you to be seen sooner. ) Lenin Oakley, PhD [Outside] - 03/13/18 3:30 pm (The above appointment is with Dr. Oakley for outpatient mental health counseling services.) Psychiatry Exam - Constitutional Vitals: Temp Pulse Resp BP Pulse Ox 98.3 F 75 20 104/67 100 03/10/18 09:00 03/10/18 09:00 03/10/18 09:00 03/10/18 09:00 03/10/18 09:00 General appearance: age & developmentally appropriate, well-groomed, well- nourished - Musculoskeletal Gait: normal Station: relaxed Strength & Tone: normal for patient - Psychiatric Patient Orientation: Yes Person, Yes Time, Yes Place Level of alertness: Alert Behavior: calm, cooperative Psychomotor activity: Normal Eye Contact: Maintains Eye Contact Mood Description: Euthymic/stable Affect description: congruent with mood, full range, other (Superficial) Speech Volume: Normal Speech pattern: normal rate, normal rhythm, normal tone, fluent, spontaneous Language & Vocabulary: consistent with education Thought Process: Linear, Goal Oriented Thought Content: No Suicidal ideation, No Homicidal ideation, No Overt delusions Perceptual Disturbances: No Auditory hallucinations, No Visual hallucinations Attention Span Ability: Capable of Focused Attention Memory Description: Grossly Intact Patient Reliability: Reliable Historian Fund of knowledge: Yes abstraction ability, Yes aware of current events Intelligence Estimate: Average Judgment: Limited Insight: Partial
[2018-03-11] MEDS: Acetaminophen/Aspirin/Caffeine TABLET PO PRN (06:32)
[2018-03-11] MEDS: lamoTRIgine 100 MG TABLET PO SCH ×2 (08:38→21:12)
[2018-03-11] MEDS: Diltiazem CD (24hr) 120 MG CAPSULE PO SCH (08:40)
[2018-03-11] MEDS: Ascorbic Acid 500 MG TABLET PO SCH (08:40)
[2018-03-11] MEDS: Magnesium Oxide 400 MG TABLET PO SCH (08:40)
[2018-03-11] MEDS: Multivit/Ca/Min/Fe/FA 1 TAB TABLET PO SCH (08:41)
[2018-03-11] MEDS: Lactobacillus 1 EACH CAP.SPRINK PO SCH (08:41)
[2018-03-11] MEDS: Vilazodone Hcl [Viibryd] 20 MG PO SCH (08:43)
--- NOTE | 2018-03-11 14:15 | Psychiatry Progress Note ---
Date of Encounter: 03/11/18 Time of Encounter: 14:00 Subjective Interval history: The patient is a 52-year-old white female. Chief complaint I tried getting on the medicine for at least 2 weeks but it did not work. History of present illness patient is gradually improved on the unit. She is less worried about some things and is S anxious . The patient notes that he has follow-up appointments and plans Dr. prescriber about Depakote or another mood stabilizer. The patient cannot take lithium due to excessive tremor and thyroid problems. The patient is willing to consider some other options. The current antidepressant has been prescribed for over 2 weeks but is at 20 mg were 40 mg dose has been used. The patient is taking her own supply. She obtained this from pharmacy but there was significant co-pay. Now that she is restarted deductible to co-pay is less but still a no anterior medicine. The patient was able to consider some other treatments 2. The patient has not had Gene site testing. The patient's treatment options were discussed and follow-up was discussed. She was encouraged despite groups and milieu therapy. Review of Systems Psychiatric: Reports: depression, anxiety, suicidal ideation, mood swings Results - Vital Signs Vital Signs: Temp Pulse Resp BP Pulse Ox 99.1 F 75 18 129/74 97 03/11/18 09:00 03/11/18 09:00 03/11/18 09:00 03/11/18 09:00 03/11/18 09:00 Assessment and Plan (1) Schizoaffective disorder, bipolar type Current visit: No Status: Acute Plan: Continue hospitalization, Close observation, Suicide Precautions per unit protocol, Encourage participation in unit milieu, Secure weapons Risks, benefits, side effects, alternatives discussed w/pt: Yes Patient agreeable to treatment: Yes Consult Discharge Plan - Plan Referrals: [facility] [Outside] - 03/13/18 11:20 am (The above appointment is with for Dr. Knight for outpatient psychiatric assessment and medication management services. Please arrive 10 minutes early to all appointments to complete the check-in process. Please bring your insurance card and photo ID. If you are unable to keep any scheduled appointment, 24 hour business notice of cancellation is expected. The above appointment(s) reflects first availability. You may contact the office regularly to check for cancellations that may allow you to be seen sooner. ) Lenin Oakley, PhD [Outside] - 03/13/18 3:30 pm (The above appointment is with Dr. Oakley for outpatient mental health counseling services.) Psychiatry Exam - Constitutional Vitals: Temp Pulse Resp BP Pulse Ox 99.1 F 75 18 129/74 97 03/11/18 09:00 03/11/18 09:00 03/11/18 09:00 03/11/18 09:00 03/11/18 09:00 General appearance: age & developmentally appropriate, well-groomed, well- nourished - Musculoskeletal Gait: normal Station: relaxed Strength & Tone: normal for patient - Psychiatric Patient Orientation: Yes Person, Yes Time, Yes Place Level of alertness: Alert Behavior: calm, cooperative Psychomotor activity: Normal Eye Contact: Maintains Eye Contact Mood Description: Anxious Affect description: congruent with mood, full range, dysphoric Speech Volume: Normal Speech pattern: normal rate, normal rhythm, normal tone, fluent, spontaneous Language & Vocabulary: consistent with education Thought Process: Linear, Goal Oriented Thought Content: No Suicidal ideation, No Homicidal ideation, No Overt delusions Perceptual Disturbances: No Auditory hallucinations, No Visual hallucinations Attention Span Ability: Capable of Focused Attention Memory Description: Grossly Intact Patient Reliability: Reliable Historian Fund of knowledge: Yes abstraction ability, Yes aware of current events Intelligence Estimate: Average Judgment: Fair Insight: Partial
[2018-03-11] MEDS: diazePAM 10 MG TABLET PO PRN (21:12)
[2018-03-12] MEDS: Lactobacillus 1 EACH CAP.SPRINK PO SCH (08:33)
[2018-03-12] MEDS: Multivit/Ca/Min/Fe/FA 1 TAB TABLET PO SCH (08:34)
[2018-03-12] MEDS: lamoTRIgine 100 MG TABLET PO SCH (08:34)
[2018-03-12] MEDS: Ascorbic Acid 500 MG TABLET PO SCH (08:34)
[2018-03-12] MEDS: Diltiazem CD (24hr) 120 MG CAPSULE PO SCH (08:34)
[2018-03-12] MEDS: Magnesium Oxide 400 MG TABLET PO SCH (08:34)
[2018-03-12] MEDS: Vilazodone Hcl [Viibryd] 20 MG PO SCH (08:36)
[2018-03-12 08:47] VITALS: BP 118/80
--- NOTE | 2018-03-12 11:24 | Discharge Summary ---
Date of Encounter: 03/12/18 Time of Encounter: 10:30 Diagnosis - Discharge Diagnosis (1) Schizoaffective disorder, bipolar type Priority: Primary Status: Acute (2) Suicidal ideations Priority: Secondary Status: Resolved Medications - Discharge Medications Atorvastatin [Lipitor] 10 mg PO HS 01/04/16 [History] Lactobacillus Combo No.11 [Probiotic] 2 tab PO DAILY 01/04/16 [History] Levothyroxine [Synthroid] 50 mcg PO 0630 01/04/16 [History] Magnesium 250 mg PO DAILY 01/04/16 [History] Multivitamin [Multivitamins] 1 each PO DAILY 01/04/16 [History] Pantoprazole Sodium 40 mg PO BID 01/04/16 [History] lamoTRIgine [Lamictal] 200 mg PO BID 01/04/16 [History] Quetiapine Fumarate [Seroquel] 400 mg PO HS #0 10/06/16 [Rx] Acetaminophen/Aspirin/Caffeine [Excedrin EX] 2 tab PO Q6HR PRN 03/06/18 [History] Ascorbic Acid [Vitamin C] 500 mg PO DAILY 03/06/18 [History] Dicyclomine [Bentyl] 10 mg PO QID PRN 03/06/18 [History] Melatonin 3 mg PO HS PRN 03/06/18 [History] Vilazodone HCl [Viibryd] 20 mg PO DAILY 03/06/18 [History] diazePAM [Valium] 10 mg PO BID 03/06/18 [History] dilTIAZem HCl [Diltiazem 24Hr Cd] 120 mg PO DAILY 03/06/18 [History] Allergy/AdvReac Type Severity Reaction Status Date / Time [place] Allergy See Verified 03/06/18 16:06 Comments Results Procedures and tests throughout hospitalization: Completed Lab Orders Category Date Time Status Acetaminophen Stat Lab 03/06/18 16:48 Completed Basic Metabolic Panel Stat Lab 03/06/18 16:48 Completed Complete Blood Count [HEME] Stat Lab 03/06/18 16:48 Completed Drug Screen, Urine [UCHEM] Stat Lab 03/06/18 16:57 Completed Ethanol Stat Lab 03/06/18 16:48 Completed Lamictal Stat Lab 03/06/18 18:02 Completed Salicylate Stat Lab 03/06/18 16:48 Completed Urinalysis reflex Microscopic [URIN] Stat Lab 03/06/18 16:53 Completed Provider Date of admission: 03/06/18 19:24 Primary care physician: PCP NONE Discharging clinician: Kody Blair Psychiatry Exam - Constitutional Vitals: Temp Pulse Resp BP Pulse Ox 98.1 F 84 16 118/80 98 03/12/18 08:46 03/12/18 08:46 03/12/18 08:46 03/12/18 08:46 03/12/18 08:46 General appearance: age & developmentally appropriate, well-groomed, well- nourished, average - Musculoskeletal Gait: normal Station: relaxed Strength & Tone: normal for patient - Psychiatric Patient Orientation: Yes Person, Yes Time, Yes Place Level of alertness: Alert Behavior: calm, cooperative Psychomotor activity: Normal Eye Contact: Maintains Eye Contact Mood Description: Euthymic/stable Affect description: congruent with mood, full range Speech Volume: Normal Speech pattern: normal rate, normal rhythm, normal tone, fluent, spontaneous Language & Vocabulary: consistent with education Thought Process: Linear, Goal Oriented Thought Content: No Suicidal ideation, No Homicidal ideation, No Overt delusions Perceptual Disturbances: No Auditory hallucinations, No Visual hallucinations Attention Span Ability: Capable of Focused Attention Memory Description: Grossly Intact Patient Reliability: Reliable Historian Fund of knowledge: Yes abstraction ability, Yes average, Yes aware of current events Intelligence Estimate: Average Judgment: Good Insight: Full Hospital Course Hospital course: Ms. Estrada is a 52 year old female The patient is a 52-year-old white female. Chief complaint: I am feeling better now my mood is improved and I am sleeping better. History of present illness the patient was admitted from the therapist's office after she had thoughts of committing suicide. The patient was in the middle medication change and noted increasing depressive symptoms low motivation and poor socialization. Patient also reports some difficulties with attention and memory. The patient was observed on the unit and was evaluated for possible side effects to her medicines. Quetiapine was continued at 400 mg at night the patient was able to sleep she also used when necessary melatonin. The patient was continued on her outpatient antidepressant her was able to bring in her supply and so she was taking medicines from her own supply. She tolerated a dose of 20 mg although the dose could be increased to 40 mg she preferred to wait complete this trial of medicine. The patient also was on the medicine lamotrigine to help with mood stabilization. We talked about other mood stabi lizers but the patient cannot take lithium and other medicines may have drug drug interactions with lamotrigine nonetheless the patient had a lamotrigine level of 4.5. With a range of 2.5-15.0. However this therapeutic level is for the control of seizures at a therapeutic level for the treatment of bipolar depression or schizoaffective disorder depressed type is.well studied. Nonetheless the patient reported improved mood. She participated in groups she did some medication education. At the time discharge patient reported that she was tolerating the current trial of medicine was considering other options in terms of her treatment and plan to follow-up with her outpatient therapist and psychiatrist area The patient notes that her helps her with her medications. She will be given at discharge instruction sheet she was reminded of her appointments. She was alerted to the side effects of her medication. And showed good insight and judgment into her illness. Does patient wish to continue nicotine replacement upon disc: No - Time Spent with Patient Total time spent providing and/or coordinating discharge services: Less than 30 minutes Assessment and Plan - Patient/Caregiver Discharge Instructions Activity: resume usual activities as tolerated Diet: regular diet - Follow up Plan Follow up with: [facility] [Outside] - 03/13/18 11:20 am (The above appointment is with for Dr. Knight for outpatient psychiatric assessment and medication management services. Please arrive 10 minutes early to all appointments to complete the check-in process. Please bring your insurance card and photo ID. If you are unable to keep any scheduled appointment, 24 hour business notice of cancellation is expected. The above appointment(s) reflects first availability. You may contact the office regularly to check for cancellations that may allow you to be seen sooner. ) Lenin Oakley, PhD [Outside] - 03/13/18 3:30 pm (The above appointment is with Dr. Oakley for outpatient mental health counseling services.) Functional capacity at discharge: independent ambulation Overall status at discharge: Stable Disposition: Home, Self-Care Quality - Multiple Antipsychotics Patient discharged on 2 or more antipsychotic medications: No Procedures - Procedures Procedures: Medication Management, Crisis Stabilization, Supportive Therapy, Group Therapy, Psychoeducational Therapy
== END 2018-03-12 13:40 | disposition home or self-care (01) | DRG 885 ==
LOC: EMEROOARM 16:00 → 1ANU 19:24 → SUATTDRO 19:24 → 1ANU 20:31
PROVIDERS: ADMIT Psychiatry & Neurology Psychiatry; ATTEND Psychiatry & Neurology Forensic Psychiatry

== ENCOUNTER 2020-04-20 15:58 | Inpatient (IN) ==
[2020-04-20 16:31] LABS: Basophils # 0.1 K/mcL (0.0-0.2); Basophils % 0.8 %; Eosinophils # 0.1 K/mcL (0.0-0.6); Eosinophils % 1.1 %; Hemoglobin 14.4 g/dL (11.5-15.4); Lymphocytes # 2.9 K/mcL (0.6-4.6); Lymphocytes % 44.5 %; Mean Corpuscular HGB Conc 33.5 g/dL (31.6-35.5); Mean Corpuscular Hemoglobin 32.1 pg (28.0-33.3); Mean Platelet Volume 9.5 fL (9.4-12.4); Monocytes # 0.5 K/mcL (0.0-1.3); Platelet Count 243 K/mcL (140-400); Red Blood Count 4.48 M/mcL (3.82-4.97); Red Cell Distribution Width 12.2 % (11.5-14.5); Segmented Neutrophils % 46.6 %; White Blood Count 6.4 K/mcL (4.3-11.1)
[2020-04-20 16:36] LABS: Amorphous Sediment,Urine Few per hpf (None-Few); Bacteria,Urine Few per hpf (None-Few); Bilirubin,Urine Negative (Negative); Blood,Urine Negative (Negative); Clarity,Urine Turbid (Clear); Color,Urine Light-Yellow (Yellow); Glucose,Urine (UA) Normal (Normal); Ketones,Urine Negative (Negative); Leukocyte Esterase,Urine Negative (Negative); Mucus,Urine Few per lpf (None-Few); Nitrite,Urine Negative (Negative); PH,Urine 6.5 pH Units (5.0-8.0); Protein,Urine Trace mg/dL (Neg-Trace); RBC,Urine 0-3 per hpf (0-3); Specific Gravity,Urine 1.025 (1.010-1.025); Squamous Epithelial Cell,Urine Few per hpf (None-Few); Urobilinogen,Urine Normal (Normal); WBC,Urine 0-3 per hpf (0-3)
[2020-04-20 16:37] LABS: Estimated Average Glucose 126 mg/dl
[2020-04-20 16:39] LABS: Amphetamine Screen,Urine Negative ng/mL (Cutoff=1000); Barbiturate Screen,Urine Negative ng/mL (Cutoff=200); Benzodiazepines Screen,Urine Positive ng/mL (Cutoff=200); Cannabinoid Screen,Urine Negative ng/mL (Cutoff = 50); Cocaine Screen,Urine Negative ng/mL (Cutoff= 300); Opiate Screen,Urine Negative ng/mL (Cutoff=300); Phencyclidine Screen,Urine Negative ng/mL (Cutoff=25)
[2020-04-20 16:49] LABS: Acetaminophen < 10 mcg/mL (10-20); BUN/Creatinine Ratio 15 (6-26); Blood Urea Nitrogen 15 mg/dL (6-20); Calcium 9.5 mg/dL (8.6-10.3); Carbon Dioxide 30 mEq/L (23-29); Chloride 104 mEq/L (98-107); Chol/HDL Ratio 4.5 (0-4.9); Cholesterol 245 mg/dL (< 200); Ethanol < 10 mg/dL (Less than 10); Glucose 80 mg/dL (70-105); HDL Cholesterol 55 mg/dL (40-59); LDL Cholesterol,Calculated 158 mg/dL (< 100); Osmolality,Calculated 294 (280-300); Potassium 3.7 mEq/L (3.5-5.1); Salicylate < 2.5 mg/dL (15.0-30.0); Sodium 142 mEq/L (136-145); Triglycerides 162 mg/dL (< 150); eGFR For African Americans > 60 (> 60); eGFR For Non-African Americans 59 (> 60)
[2020-04-20 17:13] LABS: Thyroid Stimulating Hormone 1.374 mcIU/mL (0.340-5.600)
[2020-04-20] MEDS ORDERED: *HR* LORazepam 2 MG/ML VIAL IM PRN (19:29)
[2020-04-20] MEDS ORDERED: hydrOXYzine pamoate 25 MG CAPSULE PO PRN (19:29)
[2020-04-20] MEDS ORDERED: *HR* LORazepam 1 MG TABLET PO PRN (19:29)
[2020-04-20] MEDS ORDERED: traZODone 50 MG TABLET PO PRN (19:29)
[2020-04-20] MEDS ORDERED: MOM Conc 10 ML UD.LIQ PO PRN (19:29)
[2020-04-20] MEDS ORDERED: Haloperidol Lactate 5 MG/ML VIAL IM PRN (19:29)
[2020-04-20] MEDS ORDERED: Acetaminophen 325 MG TABLET PO PRN (19:29)
[2020-04-20] MEDS ORDERED: haloperidoL 5 MG TABLET PO PRN (19:29)
[2020-04-20] MEDS: (Vilazodone Hcl [Viibryd] 40 MG) PO SCH (22:42)
[2020-04-20] MEDS: diazePAM 10 MG TABLET PO SCH (22:44)
[2020-04-20] MEDS: lamoTRIgine 100 MG TABLET PO SCH (22:45)
[2020-04-20] MEDS: QUEtiapine Fumarate 100 MG TABLET PO SCH (22:46)
[2020-04-21] MEDS: lamoTRIgine 100 MG TABLET PO SCH ×2 (09:16→21:08)
[2020-04-21] MEDS: diazePAM 10 MG TABLET PO SCH ×2 (09:16→21:07)
[2020-04-21] MEDS: DilTIAZem CD (24hr) 120 MG CAP.ER.24H PO SCH (09:18)
[2020-04-21] MEDS: (Vilazodone Hcl [Viibryd] 40 MG) PO SCH (09:18)
[2020-04-21] MEDS: Acetaminophen/Aspirin/Caffeine TABLET PO PRN ×2 (12:05→18:57)
[2020-04-21] MEDS: QUEtiapine Fumarate 100 MG TABLET PO SCH (21:08)
[2020-04-22] MEDS: lamoTRIgine 100 MG TABLET PO SCH ×2 (08:31→20:09)
[2020-04-22] MEDS: DilTIAZem CD (24hr) 120 MG CAP.ER.24H PO SCH (08:31)
[2020-04-22] MEDS: diazePAM 10 MG TABLET PO SCH ×2 (08:32→20:10)
[2020-04-22] MEDS: (Vilazodone Hcl [Viibryd] 40 MG) PO SCH (08:33)
[2020-04-22] MEDS: QUEtiapine Fumarate 100 MG TABLET PO SCH (20:10)
[2020-04-23] MEDS: Acetaminophen/Aspirin/Caffeine TABLET PO PRN (06:46)
[2020-04-23] MEDS: (Vilazodone Hcl [Viibryd] 40 MG) PO SCH (09:37)
[2020-04-23] MEDS: diazePAM 5 MG TABLET PO SCH (09:39)
[2020-04-23] MEDS: lamoTRIgine 100 MG TABLET PO SCH ×2 (09:39→20:44)
[2020-04-23] MEDS: DilTIAZem CD (24hr) 120 MG CAP.ER.24H PO SCH (09:40)
[2020-04-23] MEDS: diazePAM 10 MG TABLET PO SCH (20:44)
[2020-04-23] MEDS: QUEtiapine Fumarate 100 MG TABLET PO SCH (20:45)
[2020-04-24 08:46] VITALS: BP 128/84
[2020-04-24] MEDS: DilTIAZem CD (24hr) 120 MG CAP.ER.24H PO SCH (09:19)
[2020-04-24] MEDS: lamoTRIgine 100 MG TABLET PO SCH (09:20)
[2020-04-24] MEDS: diazePAM 5 MG TABLET PO SCH (09:20)
[2020-04-24] MEDS: (Vilazodone Hcl [Viibryd] 40 MG) PO SCH (09:21)
== END 2020-04-24 10:55 | disposition home or self-care (01) | DRG 885 ==
LOC: EMEROOARM 15:58 → 1ANU 19:22
PROVIDERS: ADMIT Psychiatry & Neurology Psychiatry; ATTEND Psychiatry & Neurology Psychiatry

== ENCOUNTER 2021-11-02 14:33 | Inpatient (IN) ==
[2021-11-02 15:43] LABS: Basophils % 0.5 %; Bilirubin,Urine Negative (Negative); Blood,Urine Negative (Negative); Clarity,Urine Clear (Clear); Color,Urine Light-Yellow (Yellow); Eosinophils # 0.1 K/mcL (0.0-0.6); Eosinophils % 1.6 %; Glucose,Urine (UA) Normal (Normal); Hemoglobin 14.8 g/dL (11.5-15.4); Immature Granulocytes % 0.3 % (0-4); Ketones,Urine Negative (Negative); Leukocyte Esterase,Urine Negative (Negative); Lymphocytes # 2.7 K/mcL (0.6-4.6); Mean Corpuscular HGB Conc 33.6 g/dL (31.6-35.5); Mean Corpuscular Hemoglobin 32.4 pg (28.0-33.3); Mean Corpuscular Volume 96.3 fL (83.0-100.0); Mean Platelet Volume 9.8 fL (9.4-12.4); Monocytes # 0.6 K/mcL (0.0-1.3); Monocytes % 7.2 %; Neutrophils # 4.3 K/mcL (1.6-8.9); Nitrite,Urine Negative (Negative); Platelet Count 244 K/mcL (140-400); Protein,Urine Negative (Neg-Trace); Red Blood Count 4.57 M/mcL (3.82-4.97); Red Cell Distribution Width 13.2 % (11.5-14.5); Segmented Neutrophils % 55.4 %; Urobilinogen,Urine Normal (Normal); White Blood Count 7.7 K/mcL (4.3-11.1)
[2021-11-02 15:50] LABS: Amphetamine Screen,Urine Negative ng/mL (Cutoff=1000); Barbiturate Screen,Urine Negative ng/mL (Cutoff=200); Benzodiazepines Screen,Urine Negative ng/mL (Cutoff=200); Cannabinoid Screen,Urine Negative ng/mL (Cutoff = 50); Cocaine Screen,Urine Negative ng/mL (Cutoff= 300); Opiate Screen,Urine Negative ng/mL (Cutoff=300); Phencyclidine Screen,Urine Negative ng/mL (Cutoff=25)
[2021-11-02 16:07] LABS: Acetaminophen < 10 mcg/mL (10-20); BUN/Creatinine Ratio 20 (6-26); Blood Urea Nitrogen 19 mg/dL (6-20); Calcium 9.9 mg/dL (8.6-10.3); Carbon Dioxide 28 mEq/L (23-29); Chloride 102 mEq/L (98-107); Ethanol < 10 mg/dL (Less than 10); Glucose 100 mg/dL (70-105); Osmolality,Calculated 286 (280-300); Potassium 4.4 mEq/L (3.5-5.1); Salicylate 4.7 mg/dL (15.0-30.0); Sodium 137 mEq/L (136-145); eGFR For African Americans > 60 (> 60); eGFR For Non-African Americans > 60 (> 60)
[2021-11-02] MEDS ORDERED: QUEtiapine Fumarate 25 MG TABLET PO PRN (19:50)
[2021-11-02] MEDS ORDERED: haloperidoL 5 MG TABLET PO PRN (19:50)
[2021-11-02] MEDS ORDERED: MOM Conc 10 ML UD.LIQ PO PRN (19:50)
[2021-11-02] MEDS ORDERED: *HR* LORazepam 2 MG/ML VIAL IM PRN (19:50)
[2021-11-02] MEDS ORDERED: Ibuprofen 400 MG TABLET PO PRN (19:50)
[2021-11-02] MEDS ORDERED: Haloperidol Lactate 5 MG/ML VIAL IM PRN (19:50)
[2021-11-02] MEDS ORDERED: *HR* LORazepam 1 MG TABLET PO PRN (19:50)
[2021-11-02] MEDS ORDERED: hydrOXYzine pamoate 25 MG CAPSULE PO PRN (19:50)
[2021-11-02 21:29] LABS: Thyroid Stimulating Hormone 2.004 mcIU/mL (0.340-5.600)
[2021-11-02 21:30] LABS: Folate 19.8 ng/mL (3.0-16.0)
[2021-11-02] MEDS ORDERED: lamoTRIgine 100 MG TABLET PO SCH (22:00)
[2021-11-02] MEDS ORDERED: clonazePAM 1 MG TABLET PO ONE (22:00)
[2021-11-02] MEDS: QUEtiapine Fumarate 100 MG TABLET PO SCH (22:31)
[2021-11-02] MEDS: QUEtiapine Fumarate 25 MG TABLET PO SCH (22:31)
[2021-11-02] MEDS: Gabapentin 300 MG CAPSULE PO SCH (22:33)
[2021-11-03] MEDS: Gabapentin 300 MG CAPSULE PO SCH ×3 (08:35→20:42)
[2021-11-03] MEDS: DilTIAZem SR (12hr) 60 MG CAP.ER.12H PO SCH (08:35)
[2021-11-03] MEDS: Vitamin B Complex/Vit C/Vit E 1 EACH TABLET PO SCH (08:36)
[2021-11-03] MEDS: clonazePAM 1 MG TABLET PO PRN (14:33)
[2021-11-03] MEDS: QUEtiapine Fumarate 100 MG TABLET PO SCH (20:41)
[2021-11-03] MEDS: lamoTRIgine 100 MG TABLET PO SCH (20:42)
[2021-11-03] MEDS: QUEtiapine Fumarate 25 MG TABLET PO SCH (20:42)
[2021-11-04] MEDS: lamoTRIgine 100 MG TABLET PO SCH ×2 (08:23→22:14)
[2021-11-04] MEDS: Gabapentin 300 MG CAPSULE PO SCH (08:23)
[2021-11-04] MEDS: Vitamin B Complex/Vit C/Vit E 1 EACH TABLET PO SCH (08:24)
[2021-11-04] MEDS: DilTIAZem SR (12hr) 60 MG CAP.ER.12H PO SCH (08:24)
[2021-11-04] MEDS: Gabapentin 400 MG CAPSULE PO SCH ×2 (15:15→22:12)
[2021-11-04] MEDS: clonazePAM 1 MG TABLET PO PRN (22:13)
[2021-11-04] MEDS: QUEtiapine Fumarate 100 MG TABLET PO SCH (22:13)
[2021-11-04] MEDS: tiZANidine 4 MG TABLET PO PRN (22:13)
[2021-11-04] MEDS: QUEtiapine Fumarate 25 MG TABLET PO SCH (22:14)
[2021-11-04] MEDS: Methyl Salicylate/Menthol 85 APPL/85 GM TUBE TP PRN (22:14)
[2021-11-05] MEDS: lamoTRIgine 100 MG TABLET PO SCH ×2 (09:18→21:17)
[2021-11-05] MEDS: Vitamin B Complex/Vit C/Vit E 1 EACH TABLET PO SCH (09:19)
[2021-11-05] MEDS: DilTIAZem SR (12hr) 60 MG CAP.ER.12H PO SCH (09:19)
[2021-11-05] MEDS: Gabapentin 400 MG CAPSULE PO SCH (09:19)
[2021-11-05] MEDS: tiZANidine 4 MG TABLET PO PRN (09:24)
[2021-11-05] MEDS: Methyl Salicylate/Menthol 85 APPL/85 GM TUBE TP PRN (11:53)
[2021-11-05] MEDS: Ketorolac 30 MG/ML VIAL IM PRN ×2 (12:18→21:18)
[2021-11-05] MEDS: *HR* Promethazine 25 MG/ML VIAL IM PRN ×2 (12:19→21:19)
[2021-11-05] MEDS: Gabapentin 300 MG CAPSULE PO SCH ×2 (16:12→21:18)
[2021-11-05] MEDS: methocarbamoL 500 MG TABLET PO PRN (21:17)
[2021-11-05] MEDS: QUEtiapine Fumarate 100 MG TABLET PO SCH (21:17)
[2021-11-05] MEDS: QUEtiapine Fumarate 25 MG TABLET PO SCH (21:17)
[2021-11-06] MEDS: DilTIAZem SR (12hr) 60 MG CAP.ER.12H PO SCH (08:52)
[2021-11-06] MEDS: Methyl Salicylate/Menthol 85 APPL/85 GM TUBE TP PRN (08:52)
[2021-11-06] MEDS: Gabapentin 400 MG CAPSULE PO SCH (08:53)
[2021-11-06] MEDS: lamoTRIgine 100 MG TABLET PO SCH ×2 (08:53→21:22)
[2021-11-06] MEDS: Vitamin B Complex/Vit C/Vit E 1 EACH TABLET PO SCH (08:53)
[2021-11-06] MEDS: Gabapentin 300 MG CAPSULE PO SCH ×2 (16:43→21:23)
[2021-11-06] MEDS: methocarbamoL 500 MG TABLET PO PRN (18:08)
[2021-11-06] MEDS: Ketorolac 30 MG/ML VIAL IM PRN (18:08)
[2021-11-06] MEDS: QUEtiapine Fumarate 100 MG TABLET PO SCH (21:22)
[2021-11-06] MEDS: QUEtiapine Fumarate 25 MG TABLET PO SCH (21:23)
[2021-11-06 22:35] VITALS: O2SAT 98
[2021-11-07] MEDS: Vitamin B Complex/Vit C/Vit E 1 EACH TABLET PO SCH (08:53)
[2021-11-07] MEDS: lamoTRIgine 100 MG TABLET PO SCH (08:53)
[2021-11-07] MEDS: Gabapentin 400 MG CAPSULE PO SCH (08:53)
[2021-11-07] MEDS: DilTIAZem SR (12hr) 60 MG CAP.ER.12H PO SCH (08:54)
[2021-11-07 09:05] VITALS: BP 118/78; PULSE 92; TEMP 97.2
[2021-11-07] MEDS: Methyl Salicylate/Menthol 85 APPL/85 GM TUBE TP PRN (11:46)
[2021-11-07] MEDS: Gabapentin 300 MG CAPSULE PO SCH (16:21)
== END 2021-11-07 18:20 | disposition home or self-care (01) | DRG 885 ==
LOC: EMEROOARM 14:33 → 1ANU 19:39
PROVIDERS: ADMIT Psychiatry & Neurology Psychiatry; ATTEND Psychiatry & Neurology Psychiatry